=== PATIENT | male | born 1970 | race Caucasian/White ===

== ENCOUNTER 2019-10-24 18:17 | Inpatient (IN) | payer OTHER, SELFPAY ==
[2019-10-24 18:22] VITALS: PULSE 100; RESP 22; TEMP 38.6; O2SAT 99; BMI 27.2
[2019-10-24 19:05] LABS: Influenza A - CEPHEID Flu A NEGATIVE (NEGATIVE); Influenza B - CEPHEID Flu B NEGATIVE (NEGATIVE)
--- NOTE | 2019-10-24 19:12 | DI.RAD.S_ITS ---
PROCEDURE: XR CHEST 2V INDICATIONS: cough, fever TECHNIQUE: 2 views of the chest were acquired. COMPARISON: None. FINDINGS: Surgical changes and devices: None. Lungs and pleura: Lungs are clear. No pleural effusions or pneumothorax. Mediastinum: Mediastinal contours are normal. Heart size is normal. Bones and chest wall: No suspicious bony abnormalities. Soft tissues appear unremarkable. IMPRESSION: Normal chest. Dictated by: Barbara Dominguez M.D. on 10/24/2019 at 20:15 Approved by: Barbara Dominguez M.D. on 10/24/2019 at 20:15
--- NOTE | 2019-10-24 19:21 | ED_ITS ---
HPI - URI/Sore Throat <THOR Joseph - Last Filed: 10/24/19 22:38> General Chief Complaint: Upper Respiratory Symptoms Stated Complaint: Very Sick Time Seen by Provider: 10/24/19 19:11 Source: patient Mode of arrival: Ambulatory Limitations: no limitations History of Present Illness HPI Narrative: The patient is a 49-year-old male with history of abdominal surgery and J-pouch related to IBS correction. he states that he has but having low-grade fevers, profuse diarrhea, muscle aches, chills productive cough for the past several days. He states he has generalized abdominal pain and feels very gassy. he states that he has had some bowel obstructions in the past. He is curious as to whether not he has the flu or pneumonia. He has not followed up with primary care provider. He states that he has been eating a lot of popsicles related to his GI upset. Related Data Home Medications Medication Instructions Recorded Confirmed No Known Home Medications 10/25/19 10/25/19 Allergies Allergy/AdvReac Type Severity Reaction Status Date / Time amoxicillin Allergy Verified 10/24/19 18:33 Review of Systems <THOR Joseph - Last Filed: 10/24/19 22:38> Review of Systems Narrative: GENERAL: See HPI HEENT: Denies sinus pain, ear pain, sore throat, difficulty swallowing, dizziness. RESPIRATORY: Denies dyspnea, cough, wheezing, hemoptysis, sputum. CARDIOVASCULAR: Denies chest pain, palpitations, orthopnea, edema, GASTROINTESTINAL: see HPI : Denies dysuria, frequency, incontinence, hematuria, urinary retention. MUSCULOSKELETAL: denies weakness, joint pain, or bony pain SKIN: Denies rash, skin lesions, or other NEUROLOGIC: Denies weakness, headache, numbness, change in speech, confusion, seizures, incoordination. PSYCHIATRIC: No concerning psychosocial issues. 12 point review of systems is negative except for those stated above Patient History <THOR Joseph - Last Filed: 10/24/19 22:38> Social History household members: spouse and children Smoking Status: Never smoker Smoking Status: Never smoker alcohol intake frequency: 0-2 drinks per day Substance Use Type: does not use Exam <THOR Joseph - Last Filed: 10/24/19 22:38> Narrative Exam Narrative: GENERAL: This is a well-nourished, well-developed patient, in appears uncomfortable HEAD: Atraumatic. Normocephalic. No temporal or scalp tenderness. EYES: Pupils equal round and reactive. Extraocular motions intact. No scleral icterus. No injection or drainage. ENT: Nose without bleeding, purulent drainage or septal hematoma. Throat without erythema, tonsillar hypertrophy or exudate. Uvula midline. Airway patent. NECK: Trachea midline. No JVD or lymphadenopathy. Supple, nontender, no meningeal signs. CARDIOVASCULAR: Regular rate and rhythm RESPIRATORY: Clear to auscultation. Breath sounds equal bilaterally. No wheezes, rales, or rhonchi. occasional cough. No increased respiratory effort. No accessory muscle use. GASTROINTESTINAL: Abdomen Firm, diffusely tender active bowel sounds all 4 quadrants, nondistended. No hepato-splenomegaly, or palpable masses. No guarding. EXTREMITIES: No clubbing, cyanosis, or edema. No joint tenderness, effusion, or edema noted. BACK: Nontender without deformity or crepitance. No flank tenderness. NEURO: AOx3. interactive. Age appropriate. SKIN: No rash or erythema On visible skin Initial Vital Signs Initial Vital Signs: Vital Signs Temperature 101.4 F H 10/24/19 18:22 Pulse Rate 100 H 10/24/19 18:22 Respiratory Rate 22 10/24/19 18:22 Pulse Oximetry 99 10/24/19 18:22 <Jessica Albarran DO - Last Filed: 10/25/19 07:16> Initial Vital Signs Initial Vital Signs: Vital Signs Temperature 101.4 F H 10/24/19 18:22 Pulse Rate 100 H 10/24/19 18:22 Respiratory Rate 22 10/24/19 18:22 Pulse Oximetry 99 10/24/19 18:22 Course <THOR Joseph - Last Filed: 10/24/19 22:38> Orders Ordered: ED Orders 10/24/19 22:19 CT abdomen pelvis wo con Stat 10/24/19 23:35 UA Complete [Urinalysis and Microscopic] Stat Sodium Chloride (Normal Saline 0.9%) 1,000 mls @ 150 mls/hr IV CONT TIFFANIE Last Infusion: 10/25/19 02:44 Dose: 0 mls/hr Documented by: Admin: 10/24/19 22:05 Dose: 150 mls/hr Documented by: MINI Sodium Chloride (Normal Saline 0.9%) 1,000 mls @ 125 mls/hr IV CONT TIFFANIE Last Admin: 10/25/19 03:18 Dose: 125 mls/hr Documented by: CRISTINAILLER Morphine Sulfate (Morphine) 2 mg IV Q4HR PRN PRN Reason: Pain, Mild (1-3) Ondansetron HCl (Zofran) 4 mg IV Q4HR PRN PRN Reason: Nausea And Vomiting Discontinued Medications Diphenhydramine HCl (Benadryl) 50 mg IV NOW ONE Stop: 10/24/19 21:31 Last Admin: 10/24/19 21:52 Dose: 50 mg Documented by: MINI Sodium Chloride (Normal Saline 0.9%) 1,000 mls @ 1,000 mls/hr IV BOLUS ONE Stop: 10/24/19 20:29 Last Infusion: 10/24/19 20:59 Dose: 0 mls/hr Documented by: Admin: 10/24/19 20:02 Dose: 1,000 mls/hr Documented by: MINI Methylprednisolone (Solu-Medrol 125 Mg Vial) 125 mg IV NOW ONE Stop: 10/24/19 21:31 Last Admin: 10/24/19 21:52 Dose: 125 mg Documented by: MINI Ondansetron HCl (Zofran) 4 mg IV NOW ONE Stop: 10/24/19 21:31 Last Admin: 10/24/19 21:52 Dose: 4 mg Documented by: MINI Vital Signs Vital signs: Vital Signs - 8 hr 10/25/19 00:02 10/25/19 02:50 10/25/19 02:51 Temperature 98.6 F 98.1 F 98.4 F Pulse Rate 76 74 77 Respiratory Rate 18 20 18 Blood Pressure 137/80 Blood Pressure [Left Arm] 123/71 133/74 Pulse Oximetry 97 96 99 <Jessica Albarran, DO - Last Filed: 10/25/19 07:16> Orders Ordered: ED Orders 10/24/19 22:19 CT abdomen pelvis wo con Stat 10/24/19 23:35 UA Complete [Urinalysis and Microscopic] Stat Sodium Chloride (Normal Saline 0.9%) 1,000 mls @ 150 mls/hr IV CONT TIFFANIE Last Infusion: 10/25/19 02:44 Dose: 0 mls/hr Documented by: Admin: 10/24/19 22:05 Dose: 150 mls/hr Documented by: MINI Sodium Chloride (Normal Saline 0.9%) 1,000 mls @ 125 mls/hr IV CONT TIFFANIE Last Admin: 10/25/19 03:18 Dose: 125 mls/hr Documented by: YANNA Morphine Sulfate (Morphine) 2 mg IV Q4HR PRN PRN Reason: Pain, Mild (1-3) Ondansetron HCl (Zofran) 4 mg IV Q4HR PRN PRN Reason: Nausea And Vomiting Discontinued Medications Diphenhydramine HCl (Benadryl) 50 mg IV NOW ONE Stop: 10/24/19 21:31 Last Admin: 10/24/19 21:52 Dose: 50 mg Documented by: MINI Sodium Chloride (Normal Saline 0.9%) 1,000 mls @ 1,000 mls/hr IV BOLUS ONE Stop: 10/24/19 20:29 Last Infusion: 10/24/19 20:59 Dose: 0 mls/hr Documented by: Admin: 10/24/19 20:02 Dose: 1,000 mls/hr Documented by: MINI Methylprednisolone (Solu-Medrol 125 Mg Vial) 125 mg IV NOW ONE Stop: 10/24/19 21:31 Last Admin: 10/24/19 21:52 Dose: 125 mg Documented by: MINI Ondansetron HCl (Zofran) 4 mg IV NOW ONE Stop: 10/24/19 21:31 Last Admin: 10/24/19 21:52 Dose: 4 mg Documented by: MINI Vital Signs Vital signs: Vital Signs - 8 hr 10/25/19 00:02 10/25/19 02:50 10/25/19 02:51 Temperature 98.6 F 98.1 F 98.4 F Pulse Rate 76 74 77 Respiratory Rate 18 20 18 Blood Pressure 137/80 Blood Pressure [Left Arm] 123/71 133/74 Pulse Oximetry 97 96 99 MDM - URI/Sore Throat <THOR Joseph - Last Filed: 10/24/19 22:38> Lab Data Result diagrams: 10/24/19 19:55 10/24/19 19:55 Labs: Lab Results 10/24/19 10/24/19 10/24/19 Range/Units 18:25 19:55 19:55 WBC 8.5 (4.5-11.0) X10^3/uL RBC 4.68 (4.5-5.9) X10^6/uL Hgb 14.4 (13.5-17.5) g/dL Hct 41.3 (41-53) % MCV 88.2 (80-100) fL MCH 30.7 (26-34) PG MCHC 34.8 (30-36) % RDW 13.4 (11.6-14.8) % Plt Count 217 (150-400) X10^3/uL Neut % (Auto) 75.9 H (50-75) % Lymph % (Auto) 11.2 L (25-40) % [place] % (Auto) 9.5 (3-14) % Eos % (Auto) 2.1 (2-4) % Baso % (Auto) 1.3 (0-2) % Neut # (Auto) 6500 (1940-2306) /uL Lymph # (Auto) 1000 L (1384-3345) /uL [place] # (Auto) 800 (0-900) /uL Eos # (Auto) 200 (0-450) /uL Baso # (Auto) 100 (0-100) /uL Sodium 141 (137-145) mmol/L Potassium 4.1 (3.4-5.1) mmol/L Chloride 106 (98-107) mmol/L Carbon Dioxide 26 (22-32) mmol/L BUN 10 (9-20) mg/dL Creatinine 1.30 H (0.66-1.25) mg/dL Estimated GFR 58.2 L (>60) mL/min BUN/Creatinine Ratio 7.7 (6-22) Glucose 112 H (70-100) mg/dL Calcium 9.5 (8.4-10.2) mg/dL Magnesium 1.8 (1.6-2.3) mg/dL Total Bilirubin 1.3 (0.2-1.3) mg/dL AST 29 (17-59) IU/L ALT 25 (<50) IU/L Alkaline Phosphatase 83 (38-126) U/L Total Protein 8.0 (6.3-8.2) g/dL Albumin 4.4 (3.5-5.0) g/dL Globulin 3.6 (1.7-4.1) g/dL Albumin/Globulin Ratio 1.2 (1.0-2.8) Amylase 111 H (30-110) U/L Lipase 72 (23-300) U/L Procalcitonin (<0.5) ng/mL Urine Color Urine Appearance Urine pH (4.5-8.0) Ur Specific [place] (1.000-1.035) Urine Protein (Negative) Urine Glucose (UA) (Negative) g/dL Urine Ketones (NEGATIVE) Urine Occult Blood (Negative) Urine Nitrate (Negative) Urine Bilirubin (NEGATIVE) Urine Urobilinogen (0.2) E.U./dL Ur Leukocyte Esterase (NEGATIVE) Urine RBC (0-5/HPF) Urine WBC (0-5/HPF) Urine Bacteria (None) Ur Culture Indicated? Influenza A (RT-PCR) Flu a negative (NEGATIVE) Influenza B (RT-PCR) Flu b negative (NEGATIVE) 10/24/19 10/24/19 Range/Units 19:55 23:35 WBC (4.5-11.0) X10^3/uL RBC (4.5-5.9) X10^6/uL Hgb (13.5-17.5) g/dL Hct (41-53) % MCV (80-100) fL MCH (26-34) PG MCHC (30-36) % RDW (11.6-14.8) % Plt Count (150-400) X10^3/uL Neut % (Auto) (50-75) % Lymph % (Auto) (25-40) % [place] % (Auto) (3-14) % Eos % (Auto) (2-4) % Baso % (Auto) (0-2) % Neut # (Auto) (3414-6818) /uL Lymph # (Auto) (8291-5051) /uL [place] # (Auto) (0-900) /uL Eos # (Auto) (0-450) /uL Baso # (Auto) (0-100) /uL Sodium (137-145) mmol/L Potassium (3.4-5.1) mmol/L Chloride (98-107) mmol/L Carbon Dioxide (22-32) mmol/L BUN (9-20) mg/dL Creatinine (0.66-1.25) mg/dL Estimated GFR (>60) mL/min BUN/Creatinine Ratio (6-22) Glucose (70-100) mg/dL Calcium (8.4-10.2) mg/dL Magnesium (1.6-2.3) mg/dL Total Bilirubin (0.2-1.3) mg/dL AST (17-59) IU/L ALT (<50) IU/L Alkaline Phosphatase (38-126) U/L Total Protein (6.3-8.2) g/dL Albumin (3.5-5.0) g/dL Globulin (1.7-4.1) g/dL Albumin/Globulin Ratio (1.0-2.8) Amylase (30-110) U/L Lipase (23-300) U/L Procalcitonin 0.12 (<0.5) ng/mL Urine Color Yellow Urine Appearance Clear Urine pH 5.0 (4.5-8.0) Ur Specific [place] <=1.005 (1.000-1.035) Urine Protein Negative (Negative) Urine Glucose (UA) Negative (Negative) g/dL Urine Ketones Negative (NEGATIVE) Urine Occult Blood Trace-lysed (Negative) Urine Nitrate Negative (Negative) Urine Bilirubin Negative (NEGATIVE) Urine Urobilinogen 0.2 (0.2) E.U./dL Ur Leukocyte Esterase Negative (NEGATIVE) Urine RBC None seen (0-5/HPF) Urine WBC None seen (0-5/HPF) Urine Bacteria None seen (None) Ur Culture Indicated? Cult not indicated Influenza A (RT-PCR) (NEGATIVE) Influenza B (RT-PCR) (NEGATIVE) Imaging Data Abdominal x-ray: Radiologist's Impression: [address] [place] [id number] XRay Report Signed Patient: Leo Frost#: [id number] : 1970Acct:[id number] Age/Sex: 49 / MDate of Service: 10/24/19 Loc: ED Accession Number: [id number] Procedure: XR abdomen min 2V Ordering Provider: Jessica De Jesus PROCEDURE: XR ABDOMEN MIN 2V INDICATIONS: abd pain TECHNIQUE: 2 views of the abdomen were acquired. COMPARISON: None. FINDINGS: Surgical changes and devices: None. Bowel: No pneumoperitoneum. Multiple distended loops of air-filled small bowel with a few air-fluid levels are present in the epigastric region. . Soft tissues: 1.6 cm smooth ovoid calcification in the right midabdomen may be a gallstone. Bones: No suspicious bony abnormalities. Degenerative disc and endplate changes in the lower thoracic spine. IMPRESSION: 1. Findings suggestive of small bowel obstruction. CT scan recommended. 2. Possible cholelithiasis. Dictated by: Barbara Dominguez M.D. on 10/24/2019 at 20:19 Approved by: Barbara Dominguez M.D. on 10/24/2019 at 20:22 Chest x-ray: Radiologist's Impression: [address] [place] [address] XRay Report Signed Patient: Leo Frost#: [id number] : 1970Acct:[id number] Age/Sex: 49 / MDate of Service: 10/24/19 Loc: ED Accession Number: [id number] Procedure: XR chest 2V Ordering Provider: Jessica De Jesus PROCEDURE: XR CHEST 2V INDICATIONS: cough, fever TECHNIQUE: 2 views of the chest were acquired. COMPARISON: None. FINDINGS: Surgical changes and devices: None. Lungs and pleura: Lungs are clear. No pleural effusions or pneumothorax. Mediastinum: Mediastinal contours are normal. Heart size is normal. Bones and chest wall: No suspicious bony abnormalities. Soft tissues appear unremarkable. IMPRESSION: Normal chest. Dictated by: Barbara Dominguez M.D. on 10/24/2019 at 20:15 Approved by: Barbara Dominguez M.D. on 10/24/2019 at 20:15 [facility] Narrative Medical decision making narrative: the patient is a 49-year-old male who presents with a chief complaint of multiple medical complaints including severe diarrhea, fevers, muscle aches and chills. Tested negative for the flu. Chest x-ray shows no pneumonia, however abdominal x-ray was concerning for small-bowel obstruction. Patient is at high risk of SBO given his surgery in the past. CT abdomen pelvis with contrast was ordered, though the patient experience projectile vomiting upon immediate contrast administration. He was brought back to the emergency department, treated for nausea and a reaction to contrast dye. Unfortunatley patient received a full dose of contrast prior to coming back to the emergency department and no scan was obtained. Patient started oral co ntrast for CT abdomen pelvis. Patient is accordance with plan of care. Patient signed out to Dr Albarran at 22:[address] with oral contrast pending. <Jessica Albarran, DO - Last Filed: 10/25/19 07:16> Lab Data Attestation: I reviewed the patient's lab results. Labs: Lab Results 10/24/19 10/24/19 10/24/19 Range/Units 18:25 19:55 19:55 WBC 8.5 (4.5-11.0) X10^3/uL RBC 4.68 (4.5-5.9) X10^6/uL Hgb 14.4 (13.5-17.5) g/dL Hct 41.3 (41-53) % MCV 88.2 (80-100) fL MCH 30.7 (26-34) PG MCHC 34.8 (30-36) % RDW 13.4 (11.6-14.8) % Plt Count 217 (150-400) X10^3/uL Neut % (Auto) 75.9 H (50-75) % Lymph % (Auto) 11.2 L (25-40) % [place] % (Auto) 9.5 (3-14) % Eos % (Auto) 2.1 (2-4) % Baso % (Auto) 1.3 (0-2) % Neut # (Auto) 6500 (4186-3839) /uL Lymph # (Auto) 1000 L (8095-8165) /uL [place] # (Auto) 800 (0-900) /uL Eos # (Auto) 200 (0-450) /uL Baso # (Auto) 100 (0-100) /uL Sodium 141 (137-145) mmol/L Potassium 4.1 (3.4-5.1) mmol/L Chloride 106 (98-107) mmol/L Carbon Dioxide 26 (22-32) mmol/L BUN 10 (9-20) mg/dL Creatinine 1.30 H (0.66-1.25) mg/dL Estimated GFR 58.2 L (>60) mL/min BUN/Creatinine Ratio 7.7 (6-22) Glucose 112 H (70-100) mg/dL Calcium 9.5 (8.4-10.2) mg/dL Magnesium 1.8 (1.6-2.3) mg/dL Total Bilirubin 1.3 (0.2-1.3) mg/dL AST 29 (17-59) IU/L ALT 25 (<50) IU/L Alkaline Phosphatase 83 (38-126) U/L Total Protein 8.0 (6.3-8.2) g/dL Albumin 4.4 (3.5-5.0) g/dL Globulin 3.6 (1.7-4.1) g/dL Albumin/Globulin Ratio 1.2 (1.0-2.8) Amylase 111 H (30-110) U/L Lipase 72 (23-300) U/L Procalcitonin (<0.5) ng/mL Urine Color Urine Appearance Urine pH (4.5-8.0) Ur Specific [place] (1.000-1.035) Urine Protein (Negative) Urine Glucose (UA) (Negative) g/dL Urine Ketones (NEGATIVE) Urine Occult Blood (Negative) Urine Nitrate (Negative) Urine Bilirubin (NEGATIVE) Urine Urobilinogen (0.2) E.U./dL Ur Leukocyte Esterase (NEGATIVE) Urine RBC (0-5/HPF) Urine WBC (0-5/HPF) Urine Bacteria (None) Ur Culture Indicated? Influenza A (RT-PCR) Flu a negative (NEGATIVE) Influenza B (RT-PCR) Flu b negative (NEGATIVE) 10/24/19 10/24/19 Range/Units 19:55 23:35 WBC (4.5-11.0) X10^3/uL RBC (4.5-5.9) X10^6/uL Hgb (13.5-17.5) g/dL Hct (41-53) % MCV (80-100) fL MCH (26-34) PG MCHC (30-36) % RDW (11.6-14.8) % Plt Count (150-400) X10^3/uL Neut % (Auto) (50-75) % Lymph % (Auto) (25-40) % [place] % (Auto) (3-14) % Eos % (Auto) (2-4) % Baso % (Auto) (0-2) % Neut # (Auto) (2051-2551) /uL Lymph # (Auto) (0641-8297) /uL [place] # (Auto) (0-900) /uL Eos # (Auto) (0-450) /uL Baso # (Auto) (0-100) /uL Sodium (137-145) mmol/L Potassium (3.4-5.1) mmol/L Chloride (98-107) mmol/L Carbon Dioxide (22-32) mmol/L BUN (9-20) mg/dL Creatinine (0.66-1.25) mg/dL Estimated GFR (>60) mL/min BUN/Creatinine Ratio (6-22) Glucose (70-100) mg/dL Calcium (8.4-10.2) mg/dL Magnesium (1.6-2.3) mg/dL Total Bilirubin (0.2-1.3) mg/dL AST (17-59) IU/L ALT (<50) IU/L Alkaline Phosphatase (38-126) U/L Total Protein (6.3-8.2) g/dL Albumin (3.5-5.0) g/dL Globulin (1.7-4.1) g/dL Albumin/Globulin Ratio (1.0-2.8) Amylase (30-110) U/L Lipase (23-300) U/L Procalcitonin 0.12 (<0.5) ng/mL Urine Color Yellow Urine Appearance Clear Urine pH 5.0 (4.5-8.0) Ur Specific [place] <=1.005 (1.000-1.035) Urine Protein Negative (Negative) Urine Glucose (UA) Negative (Negative) g/dL Urine Ketones Negative (NEGATIVE) Urine Occult Blood Trace-lysed (Negative) Urine Nitrate Negative (Negative) Urine Bilirubin Negative (NEGATIVE) Urine Urobilinogen 0.2 (0.2) E.U./dL Ur Leukocyte Esterase Negative (NEGATIVE) Urine RBC None seen (0-5/HPF) Urine WBC None seen (0-5/HPF) Urine Bacteria None seen (None) Ur Culture Indicated? Cult not indicated Influenza A (RT-PCR) (NEGATIVE) Influenza B (RT-PCR) (NEGATIVE) MDM Narrative Medical decision making narrative: Patient comes in needing septic criteria with a fever pulse of 100, x-ray was concerning for bowel obstruction lab work CT of abdomen was pelvis patient had 1 episode of vomiting immediately after receiving contrast he has not had any vomiting otherwise knees had diarrhea so is likely a partial bowel obstruction. Patient used to see Dr. Toledo I spoke with Dr. Loza who recognizes the patient name and states that he is comfortable accepting the patient although patient states he has not been there at least in a year or more. They will contact General surgery as needed patient was given fluids, pain medication and was pretreated after doing oral contrast as they did not want to repeat contrast secondary to his chronic kidney disease. Patient did not have any additional emesis. Discharge Plan Departure Patient Disposition: Admitted as Observation Clinical Impression: Small bowel obstruction, partial Discharge Date/Time: 10/25/19 02:54 Admit Date/Time: 10/25/19 03:03 Admit Provider: Ralph Loza
[2019-10-24] MEDS: SODIUM CHLORIDE 0.9% 1,000 ML 1000 ML IV (20:02)
[2019-10-24 20:05] LABS: Add Manual Diff / Slide Review NO; Basophils Absolute Auto 100 /uL (0-100); Basophils Percent Auto 1.3 % (0-2); Eosinophils Absolute Auto 200 /uL (0-450); Eosinophils Percent Auto 2.1 % (2-4); Hematocrit 41.3 % (41-53); Hemoglobin 14.4 g/dL (13.5-17.5); Lymphocytes Absolute Auto 1000 /uL (1100-4500); Lymphocytes Percent Auto 11.2 % (25-40); Mean Corpuscular HGB Conc 34.8 % (30-36); Mean Corpuscular Hemoglobin 30.7 PG (26-34); Mean Corpuscular Volume 88.2 fL (80-100); Monocytes Absolute Auto 800 /uL (0-900); Monocytes Percent Auto 9.5 % (3-14); Neutrophils Absolute Auto 6500 /uL (1500-7000); Neutrophils Percent Auto 75.9 % (50-75); Platelet Count 217 X10^3/uL (150-400); Red Blood Cell Count 4.68 X10^6/uL (4.5-5.9); Red Cell Distribution Width 13.4 % (11.6-14.8); White Blood Cell Count 8.5 X10^3/uL (4.5-11.0)
[2019-10-24 20:18] LABS: Alanine Aminotransferase 25 IU/L (<50); Albumin 4.4 g/dL (3.5-5.0); Albumin Globulin Ratio 1.2 (1.0-2.8); Alkaline Phosphatase 83 U/L (38-126); Amylase 111 U/L (30-110); Aspartate Aminotransferase 29 IU/L (17-59); BUN Creatinine Ratio 7.7 (6-22); Bilirubin Total 1.3 mg/dL (0.2-1.3); Blood Urea Nitrogen 10 mg/dL (9-20); Calcium 9.5 mg/dL (8.4-10.2); Carbon Dioxide 26 mmol/L (22-32); Chloride 106 mmol/L (98-107); Estimated Glomerular Filt Rate 58.2 mL/min (>60); Globulin 3.6 g/dL (1.7-4.1); Glucose 112 mg/dL (70-100); HEMOLYSIS < 15 (0-50); Lipase 72 U/L (23-300); Magnesium 1.8 mg/dL (1.6-2.3); Potassium 4.1 mmol/L (3.4-5.1); Sodium 141 mmol/L (137-145)
[2019-10-24] MEDS: diphenhydrAMINE 50 MG/ML VIAL IV (21:52)
[2019-10-24] MEDS: ONDANSETRON 4 MG/2 ML INJ IV (21:52)
[2019-10-24] MEDS: methylPREDNISolone 125 MG/2 ML VIAL IV (21:52)
[2019-10-24] MEDS: SODIUM CHLORIDE 0.9% 1,000 ML 150 ML IV (22:05)
--- NOTE | 2019-10-24 22:19 | DI.CT.S_ITS ---
PROCEDURE: CT ABDOMEN PELVIS W CON INDICATIONS: abdominal pain TECHNIQUE: After the administration of oral and intravenous contrast, 5 mm thick sections acquired from the diaphragms to the symphysis. 5 mm thick coronal and sagittal reformats were performed. For radiation dose reduction, the following was used: automated exposure control, adjustment of mA and/or kV according to patient size. COMPARISON: None. FINDINGS: Image quality: Excellent. ABDOMEN: Lung bases: Lung bases are clear. Heart size is normal. Solid organs: Liver is enlarged steatosis. Hepatic cysts are noted. Gallbladder demonstrates a prominent luminal stone. Gallbladder is overall contracted.. Biliary system is non-dilated. Pancreas enhances normally. Spleen is normal in size and enhancement. No adrenal nodules. Kidneys are normal in size and enhancement, without hydronephrosis. Peritoneum and bowel: Prominently dilated fluid-filled loops of small bowel are present. This is most notable within the mid abdomen and pelvis. Surgical changes reflecting what appears to be total colectomy are noted. Transition point is suspected within the mid abdomen near anastomotic sutures. Nodes and vessels: No retroperitoneal or mesenteric adenopathy. Aorta and inferior vena cava are normal in caliber. Miscellaneous: No ventral hernias. PELVIS: Genitourinary: Bladder wall thickness is normal. Miscellaneous: No inguinal hernias or adenopathy. Bones: No suspicious bony lesions. No vertebral body compression fractures. IMPRESSION: 1. Moderate to severe partial small bowel obstruction. No free air. 2. Cholelithiasis with contracted gallbladder. If concern for cholecystitis persists, recommend ultrasound follow up would patient is n.p.o. 3. Hepatomegaly with steatosis and hepatic cysts. The above findings are concordant with preliminary report. Dictated by: Ivon Castillo M.D. on 10/25/2019 at 9:24 Approved by: Ivon Castillo M.D. on 10/25/2019 at 9:29
[2019-10-24 22:36] LABS: Procalcitonin 0.12 ng/mL (<0.5)
[2019-10-24 23:58] LABS: Bacteria Urine None Seen; RBC Urine None Seen (0-5/HPF); WBC Urine None Seen (0-5/HPF)
[2019-10-25] VITALS (8 sets, daily range): BP systolic 122–140; BP diastolic 66–80; PULSE 71–83; RESP 14–20; TEMP 36.7–37.2; O2SAT 94–99; BMI 27.2
[2019-10-25] LABS: Appearance Urine UA CLEAR; Bilirubin Urine UA NEGATIVE (NEGATIVE); Color Urine UA YELLOW; Glucose Urine UA NEGATIVE (Negative); Ketones Urine UA NEGATIVE (NEGATIVE); Leukocyte Esterase Urine UA NEGATIVE (NEGATIVE); Nitrite Urine UA NEGATIVE (Negative); Occult Blood Urine UA TRACE-LYSED (Negative); Protein Urine UA NEGATIVE (Negative); Specific Gravity Urine UA <=1.005 (1.000-1.035); Urobilinogen Urine UA 0.2 E.U./dL (0.2)
[2019-10-25 00:17] LABS: Culture Indicated Urine Cult Not Indicated
--- NOTE | 2019-10-25 02:52 | PC.NURSE ---
for additional vitals see paper chart.
[2019-10-25] MEDS: SODIUM CHLORIDE 0.9% 1,000 ML 125 ML IV ×2 (03:18→10:43)
[2019-10-25 09:37] LABS: Add Manual Diff / Slide Review NO; Basophils Absolute Auto 0 /uL (0-100); Basophils Percent Auto 0.2 % (0-2); Eosinophils Absolute Auto 0 /uL (0-450); Eosinophils Percent Auto 0.1 % (2-4); Hemoglobin 14.3 g/dL (13.5-17.5); Lymphocytes Absolute Auto 600 /uL (1100-4500); Lymphocytes Percent Auto 7.7 % (25-40); Mean Corpuscular Hemoglobin 30.8 PG (26-34); Mean Corpuscular Volume 88.1 fL (80-100); Monocytes Absolute Auto 200 /uL (0-900); Neutrophils Absolute Auto 6900 /uL (1500-7000); Platelet Count 237 X10^3/uL (150-400); Red Blood Cell Count 4.66 X10^6/uL (4.5-5.9); Red Cell Distribution Width 13.1 % (11.6-14.8); White Blood Cell Count 7.7 X10^3/uL (4.5-11.0)
[2019-10-25 09:54] LABS: Alanine Aminotransferase 21 IU/L (<50); Albumin 4.1 g/dL (3.5-5.0); Albumin Globulin Ratio 1.2 (1.0-2.8); Alkaline Phosphatase 83 U/L (38-126); Aspartate Aminotransferase 23 IU/L (17-59); Bilirubin Total 1.6 mg/dL (0.2-1.3); Blood Urea Nitrogen 11 mg/dL (9-20); Calcium 9.3 mg/dL (8.4-10.2); Carbon Dioxide 22 mmol/L (22-32); Chloride 107 mmol/L (98-107); Estimated Glomerular Filt Rate > 60.0 mL/min (>60); Globulin 3.5 g/dL (1.7-4.1); Glucose 153 mg/dL (70-100); HEMOLYSIS < 15 (0-50); Potassium 4.2 mmol/L (3.4-5.1); Sodium 140 mmol/L (137-145); Total Protein 7.6 g/dL (6.3-8.2)
[2019-10-25 09:56] LABS: Amylase 79 U/L (30-110); C-Reactive Protein Quant 3.7 mg/dL (<1.0); Lipase 62 U/L (23-300)
--- NOTE | 2019-10-25 13:20 | DI.US.S_ITS ---
PROCEDURE: US ABDOMEN LIMITED INDICATIONS: ABNORMAL GALLBLADDER ON CT TECHNIQUE: Real-time scanning was performed of the abdominal and retroperitoneal organs, with image documentation. COMPARISON: [facility], CT, CT ABDOMEN PELVIS W CON, 10/24/2019, 23:12. FINDINGS: Liver: Within normal limits in size and echogenicity. Left lobe is not well-seen due to to overlying bowel gas. Gallbladder: Nondilated. Shadowing gallstones are present. Normal gallbladder wall thickness. No pericholecystic fluid. Negative sonographic Nettles's sign. Biliary ducts: Intrahepatic bile ducts are non-dilated. Extrahepatic bile duct caliber measures 7.5 mm. Normal is 6-7 mm or less in diameter, or 10 mm or less post-cholecystectomy. Pancreas: Not well-seen due to overlying bowel gas. Kidneys: Right pelvic kidney. No hydronephrosis. Left kidney not evaluated. IMPRESSION: 1. No acute cholecystitis. Gallstones are present. 2. Sonographic appearance of the liver is within normal limits. 3. Right pelvic kidney. Dictated by: Rico Juarez M.D. on 10/25/2019 at 13:56 Approved by: Rico Juarez M.D. on 10/25/2019 at 13:59
--- NOTE | 2019-10-25 14:34 | CM.DANOTE ---
Discharge Planning/Care Management DCP: assessment: case received, EMR reviewed (currently no H&P is available is available). Met with pt and introduced self and role. Pt is a 49 year old male who admitted early this morning to care of [facility]. It is unclear who is following him today and pt is also unsure. PCP: was Dr. Toledo, now retired. Payer: [employer] Admission status: in review per CHARLES Wolff. Pt confirms he is functionally independent at baseline and is eager to hear what the physician plans. He is eager to get back to work, says he has had total of 3 abdominal surgeries at the [facility] and has no more PTO left. He says his works and we will be fine, but he is eager to here what is expected. Assured him DCP team would be available to assist with any d/c needs that may arise... Hopefully documentation will be in place by tomorrow so that pt and the care team will have more clarity re POC going forward. CM Discharge Assessment Start: 10/25/19 14:33 Freq: Status: Active Protocol: Document 10/25/19 14:33 ITV (Rec: 10/25/19 14:34 ITV [id number]) Discharge Planning Assessment Advance Directives? No History Provided By Patient,Medical Record Has Patient been admitted in last 30 No days? Prior Living Arrangements House Household Members spouse Type of transportation used prior to Drives own vehicle admit Independent with ADL's Yes Is patient alert and oriented? Yes Whiteboard Updated in Patient Room with Yes name and ext. 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
--- NOTE | 2019-10-25 17:53 | DI.RAD.S_ITS ---
PROCEDURE: XR ACUTE ABDOMEN SERIES INDICATIONS: bowel obstruction TECHNIQUE: One view chest and two views of the abdomen were acquired. COMPARISON: None. FINDINGS: Surgical changes and devices: None. Chest: Lungs are clear. Heart size is normal. No pleural effusions. No pneumoperitoneum. Abdomen: Bowel gas pattern is abnormal, with small bowel obstruction pattern suspected over the midabdomen, without colonic dilatation or evidence of free air.. No suspicious calcifications. Visualized solid organ contours appear normal. Bones: No suspicious bony lesions. IMPRESSION: Early small bowel obstruction pattern, moderate in severity. CT scanning may be warranted. Dictated by: Mayito Galvez M.D. on 10/25/2019 at 18:27 Approved by: Mayito Galvez M.D. on 10/25/2019 at 18:28
--- NOTE | 2019-10-25 18:14 | P.HP_ITS ---
History of Present Illness History of Present Illness Date Patient Seen: 10/25/19 Time Patient Seen: 08:14 Chief complaint: Very Sick Narrative: Patient presents to emergency department with complaints of feeling very ill. He was having fever upper respiratory symptoms with cough phlegm for approximately 6 days prior to reporting to emergency room via private vehicle. Because of this he started cutting down on food and then was having diarrheal stools several a day for the last week. He has a history of Crohn's disease and underwent a total colectomy with a J-pouch formation in 2013. He has done well since then. He has had persistent left lower quadrant pain that has been intermittent. He last so his surgeon a year ago and they thought it was just r elated to how they had to perform the surgery and how they had to bring the small intestine down attach it to the anus. He cut down on foods because he was just generally feeling poorly. He was found have a temperature in the ER but did not receive any antibiotics and was admitted for a partial bowel obstruction. He is feeling better today. He is not passing gas but he has had diarrheal stools. He is not hungry. He is not having nausea. He has states that his phlegm production has decreased. His influenza swab was negative. Past Medical history: 1. Crohn's disease. Diagnosed in 2013. He underwent a total colectomy with J- pouch formation at 12:[address] Mena at [facility] area code [id number]. His automation design engineer is Dr. Tien Molina. He was last seen by him a year ago and they did a sigmoidoscopy it sounds like it was normal and then he was post have a CT scan but they never called him for this. He had a total of 3 surgeries his last 1 was in June of 2016. He is otherwise healthy. He previously saw Dr. Cuevas or [facility] Medications: None Allergies: Amoxicillin causes a rash Past surgical history: Total colectomy and J-pouch formation with 3 surgeries from August of 2015 to June of 2016 HRB: No tobacco abuse. Repeat rare alcohol. No exercise Family history: No autoimmune disorders. Paternal grandfather with colon cancer at age 49 and paternal grandmother with colon cancers well Mom of lung cancer. She was a smoker. Dad is alive but suffers from dementia and lives in a care facility. Social history patient is retired no works at [employer]. He is and lives in [place] and has a daughter. He is originally from [place] Review of systems: He had joint pain fingers extremities have been painful over the last several days similar to when he was 1st diagnosed with Crohn's. He has not had swelling. He has had a low-grade fever. He has had a lot of nasal congestion phlegm and cough. Review of systems is otherwise negative Patient History Family & Social History Social History: household members spouse Prior Living Arrangements House Safety & Behavioral: Feels Safe in Current Yes Environment Been Physically Hurt or No Threatened By a Person Tobacco & Substance use: Smoking Status Never smoker alcohol intake frequency 0-2 drinks per day Substance Use Type does not use Meds Home Medications and Allergies Home Medications Medication Instructions Recorded Confirmed Type No Known Home Medications 10/25/19 10/25/19 History Allergies Allergy/AdvReac Type Severity Reaction Status Date / Time amoxicillin Allergy Verified 10/24/19 18:33 Exam Vital Signs (past 8 hours): - 10/25/19 12:05 10/25/19 15:35 Temperature 98.7 F 98.9 F Pulse Rate 83 74 Respiratory Rate 16 16 Blood Pressure 140/68 129/79 Pulse Oximetry 97 97 Oxygen Delivery Method Room Air Oxygen Flow Rate 0 Narrative Exam Narrative: Patient alert and oriented in no apparent distress. He is a good historian. Afebrile vital signs are stable. He has not had a fever since admission at which point it was 101.4. HEENT: Unremarkable, mucous membranes moist and pink without lesions Neck: Supple without adenopathy or thyromegaly Chest: Clear to auscultation without wheezes rhonchi or crackles Cor: Regular rate and rhythm without murmur Abdomen: Positive bowel sounds x4. He is tender in the left lower quadrant with some guarding but no rebound tenderness and no peritoneal signs Extremities: No edema pulses intact Skin exam no rashes Neurologic exam nonfocal Objective Labs Result Diagrams: 10/25/19 09:15 10/25/19 09:15 Labs: Laboratory Results - last 24 hr 10/24/19 10/24/19 10/24/19 18:25 19:55 19:55 WBC 8.5 RBC 4.68 Hgb 14.4 Hct 41.3 MCV 88.2 MCH 30.7 MCHC 34.8 RDW 13.4 Plt Count 217 Neut % (Auto) 75.9 H Lymph % (Auto) 11.2 L [place] % (Auto) 9.5 Eos % (Auto) 2.1 Baso % (Auto) 1.3 Neut # (Auto) 6500 Lymph # (Auto) 1000 L [place] # (Auto) 800 Eos # (Auto) 200 Baso # (Auto) 100 Sodium 141 Potassium 4.1 Chloride 106 Carbon Dioxide 26 BUN 10 Creatinine 1.30 H Estimated GFR 58.2 L BUN/Creatinine Ratio 7.7 Glucose 112 H Calcium 9.5 Magnesium 1.8 Total Bilirubin 1.3 AST 29 ALT 25 Alkaline Phosphatase 83 C-Reactive Protein Total Protein 8.0 Albumin 4.4 Globulin 3.6 Albumin/Globulin Ratio 1.2 Amylase 111 H Lipase 72 Procalcitonin Urine Color Urine Appearance Urine pH Ur Specific [place] Urine Protein Urine Glucose (UA) Urine Ketones Urine Occult Blood Urine Nitrate Urine Bilirubin Urine Urobilinogen Ur Leukocyte Esterase Urine RBC Urine WBC Urine Bacteria Ur Culture Indicated? Influenza A (RT-PCR) Flu a negative Influenza B (RT-PCR) Flu b negative 10/24/19 10/24/19 10/25/19 19:55 23:35 09:15 WBC 7.7 RBC 4.66 Hgb 14.3 Hct 41.0 MCV 88.1 MCH 30.8 MCHC 35.0 RDW 13.1 Plt Count 237 Neut % (Auto) 90.0 H Lymph % (Auto) 7.7 L [place] % (Auto) 2.0 L Eos % (Auto) 0.1 L Baso % (Auto) 0.2 Neut # (Auto) 6900 Lymph # (Auto) 600 L [place] # (Auto) 200 Eos # (Auto) 0 Baso # (Auto) 0 Sodium Potassium Chloride Carbon Dioxide BUN Creatinine Estimated GFR BUN/Creatinine Ratio Glucose Calcium Magnesium Total Bilirubin AST ALT Alkaline Phosphatase C-Reactive Protein Total Protein Albumin Globulin Albumin/Globulin Ratio Amylase Lipase Procalcitonin 0.12 Urine Color Yellow Urine Appearance Clear Urine pH 5.0 Ur Specific [place] <=1.005 Urine Protein Negative Urine Glucose (UA) Negative Urine Ketones Negative Urine Occult Blood Trace-lysed Urine Nitrate Negative Urine Bilirubin Negative Urine Urobilinogen 0.2 Ur Leukocyte Esterase Negative Urine RBC None seen Urine WBC None seen Urine Bacteria None seen Ur Culture Indicated? Cult not indicated Influenza A (RT-PCR) Influenza B (RT-PCR) 10/25/19 10/25/19 09:15 09:15 WBC RBC Hgb Hct MCV MCH MCHC RDW Plt Count Neut % (Auto) Lymph % (Auto) [place] % (Auto) Eos % (Auto) Baso % (Auto) Neut # (Auto) Lymph # (Auto) [place] # (Auto) Eos # (Auto) Baso # (Auto) Sodium 140 Potassium 4.2 Chloride 107 Carbon Dioxide 22 BUN 11 Creatinine 1.00 Estimated GFR > 60.0 BUN/Creatinine Ratio 11.0 Glucose 153 H Calcium 9.3 Magnesium Total Bilirubin 1.6 H AST 23 ALT 21 Alkaline Phosphatase 83 C-Reactive Protein 3.7 H Total Protein 7.6 Albumin 4.1 Globulin 3.5 Albumin/Globulin Ratio 1.2 Amylase 79 Lipase 62 Procalcitonin Urine Color Urine Appearance Urine pH Ur Specific [place] Urine Protein Urine Glucose (UA) Urine Ketones Urine Occult Blood Urine Nitrate Urine Bilirubin Urine Urobilinogen Ur Leukocyte Esterase Urine RBC Urine WBC Urine Bacteria Ur Culture Indicated? Influenza A (RT-PCR) Influenza B (RT-PCR) Assessment & Plan Assessment & Plan narrative: 49-year-old male admitted with a moderate to severe partial small-bowel obstruction with a history of ulcerative colitis and status post total colectomy with J-pouch formation. He is improved today with IV fluids. He continues to be afebrile and has not received any antibiotics. We will continue with IV fluids. We will repeat labs this morning. We will do abdominal ultrasound due to cholelithiasis but I do not think this is contributing he is not tender in the right upper quadrant. We will repeat three view of the abdomen and if he is clearing then will give clear liquids. If he is not he will continue NPO with IV fluids with plan for discussion with his surgeon in a.m. pending how he is doing. 2. Upper respiratory infection. His flu swab was negative. He seems symptomatic sleep better. No evidence of bacterial infection. Will continue to monitor labs. Procalcitonin negative on abdomen Assessment 3. Acute renal insufficiency suspect related to dehydration Plan: Continue IV fluids and will check his labs this morning. Assessment 4. Cholelithiasis on CT scan. No evidence of acute cholecystitis. We will do abdominal ultrasound. We will continue to follow labs. Code status is full code Quality VTE Deep Vein Thrombosis/Pulmonary Embolism Present on Admission: No
[2019-10-25] MEDS: MORPHINE 2 MG/ML INJ IV (19:55)
[2019-10-25] MEDS: SODIUM CHLORIDE 0.9% 1,000 ML 150 ML IV (20:54)
[2019-10-26] VITALS (7 sets, daily range): BP systolic 119–145; BP diastolic 73–89; PULSE 62–76; RESP 12–16; TEMP 36.5–37.1; O2SAT 95–99
[2019-10-26] MEDS: SODIUM CHLORIDE 0.9% 1,000 ML 125 ML IV (04:57)
[2019-10-26 07:38] LABS: Add Manual Diff / Slide Review NO; Basophils Absolute Auto 0 /uL (0-100); Basophils Percent Auto 0.3 % (0-2); Eosinophils Absolute Auto 0 /uL (0-450); Eosinophils Percent Auto 0.4 % (2-4); Hematocrit 40.2 % (41-53); Hemoglobin 13.7 g/dL (13.5-17.5); Lymphocytes Absolute Auto 1400 /uL (1100-4500); Lymphocytes Percent Auto 19.7 % (25-40); Mean Corpuscular HGB Conc 34.2 % (30-36); Mean Corpuscular Hemoglobin 30.3 PG (26-34); Mean Corpuscular Volume 88.7 fL (80-100); Monocytes Absolute Auto 600 /uL (0-900); Monocytes Percent Auto 8.1 % (3-14); Neutrophils Absolute Auto 5100 /uL (1500-7000); Neutrophils Percent Auto 71.5 % (50-75); Platelet Count 230 X10^3/uL (150-400); Red Blood Cell Count 4.53 X10^6/uL (4.5-5.9); Red Cell Distribution Width 13.4 % (11.6-14.8); White Blood Cell Count 7.1 X10^3/uL (4.5-11.0)
[2019-10-26 07:54] LABS: Alanine Aminotransferase 17 IU/L (<50); Albumin 3.5 g/dL (3.5-5.0); Albumin Globulin Ratio 1.1 (1.0-2.8); Alkaline Phosphatase 64 U/L (38-126); Aspartate Aminotransferase 24 IU/L (17-59); BUN Creatinine Ratio 15.5 (6-22); Bilirubin Total 1.4 mg/dL (0.2-1.3); Blood Urea Nitrogen 17 mg/dL (9-20); Calcium 8.8 mg/dL (8.4-10.2); Carbon Dioxide 27 mmol/L (22-32); Chloride 110 mmol/L (98-107); Estimated Glomerular Filt Rate > 60.0 mL/min (>60); Globulin 3.2 g/dL (1.7-4.1); Glucose 94 mg/dL (70-100); HEMOLYSIS < 15 (0-50); Potassium 3.7 mmol/L (3.4-5.1); Sodium 145 mmol/L (137-145); Total Protein 6.7 g/dL (6.3-8.2)
--- NOTE | 2019-10-26 12:54 | P.PN_ITS ---
Subjective Subjective Date Patient Seen: 10/26/19 Time Patient Seen: 12:54 Interval history: Patient is doing better today, reports less abdominal pain, still some bloating. He is passing loose stools, nonbloody. Remains NPO. IV fluids running, urine remains concentrated and he is thirsty. Has been able to ambulate with no difficulty. Exam Vital Signs (past 8 hours): - 10/26/19 07:50 10/26/19 11:48 Temperature 98.8 F 98.7 F Pulse Rate 71 70 Respiratory Rate 16 16 Blood Pressure 119/77 120/73 Pulse Oximetry 98 99 Oxygen Delivery Method Room Air Oxygen Flow Rate 0 Narrative Exam Narrative: GENERAL: Alert and oriented, appearing stated age and in no acute distress. HEENT: Head normocephalic/atraumatic. LUNGS: Clear to ausculation bilaterally, no wheezes, rhonchi or rales. CV: Normal S1 and S2 with regular rate and rhythm, no audible murmurs, rubs or gallops. ABDOMEN: Soft, mildly tender over bilateral upper quadrants, mildly distended in same areas, no organomegaly. Positive bowel sounds in all 4 quadrants. EXTREMITIES: No clubbing, cyanosis, or edema. NEURO: Cranial nerves II through XII grossly intact, no focal deficits. PSYCH: Alert and oriented x 3. SKIN: No concerning lesions. Objective Labs Result Diagrams: 10/26/19 06:40 10/26/19 06:40 Labs: Laboratory Results - last 24 hr 10/26/19 10/26/19 06:40 06:40 WBC 7.1 RBC 4.53 Hgb 13.7 Hct 40.2 L MCV 88.7 MCH 30.3 MCHC 34.2 RDW 13.4 Plt Count 230 Neut % (Auto) 71.5 Lymph % (Auto) 19.7 L [place] % (Auto) 8.1 Eos % (Auto) 0.4 L Baso % (Auto) 0.3 Neut # (Auto) 5100 Lymph # (Auto) 1400 [place] # (Auto) 600 Eos # (Auto) 0 Baso # (Auto) 0 Sodium 145 Potassium 3.7 Chloride 110 H Carbon Dioxide 27 BUN 17 Creatinine 1.10 Estimated GFR > 60.0 BUN/Creatinine Ratio 15.5 Glucose 94 Calcium 8.8 Total Bilirubin 1.4 H AST 24 ALT 17 Alkaline Phosphatase 64 Total Protein 6.7 Albumin 3.5 Globulin 3.2 Albumin/Globulin Ratio 1.1 Assessment & Plan Assessment & Plan narrative: Assessment 1: Partial small-bowel obstruction, improving. Reassuring that the patient is passing stool, some pain and distension persists. Plan: Will update abdominal x-ray. Assessment 2: Dehydration secondary to NPO status. Plan: Will increase IV fluid rate and follow intake/output closely. Assessment 3: Acute renal insufficiency secondary to dehydration, resolved. Plan: Will follow labs closely. Assessment 4: Upper respiratory tract infection, likely viral, afebrile, improving. Plan: Supportive therapy, patient is resolving. Assessment 5. Cholelithiasis on CT scan. No evidence of acute cholecystitis on US. Plan: Clinically stable, will watch closely. DVT prophylaxis: SCDs Code: Full Quality VTE Deep Vein Thrombosis/Pulmonary Embolism Present on Admission: No
--- NOTE | 2019-10-26 12:57 | CM.DPC ---
DCP Cont: Checked in with patient. Introduced self and role. He was sitting up in his chair by his bed. Alert and oriented. Patient is currently employed at [employer]. He is independent. Stated that he has a history of abdominal problems, and has gone to [facility] for [facility]. Discussed primary care providers. Patient stated that he had gone to see Dr. Toledo one time, then, he retired. Mentioned the possibility of him getting established with Dr. Vance at [facility]. Dr. Parker will be seeing patient today. P: DCP to continue to follow. Patient should be able to return home when he is medically stable. Agnes Wing RN/Sleeper Cutter
--- NOTE | 2019-10-26 12:59 | DI.RAD.S_ITS ---
PROCEDURE: XR ACUTE ABDOMEN SERIES INDICATIONS: SBO, surveillance TECHNIQUE: One view chest and two views of the abdomen were acquired. COMPARISON: [facility], CR, XR ACUTE ABDOMEN SERIES, 10/25/2019, 17:51. FINDINGS: Surgical changes and devices: None. Chest: Lungs are clear. Heart size is normal. No pleural effusions. No pneumoperitoneum. Abdomen: Bowel gas pattern is again seen to be abnormal with small bowel gas distention moderate in severity over the abdomen. No suspicious calcifications. Visualized solid organ contours appear normal. Bones: No suspicious bony lesions. IMPRESSION: Moderate small bowel obstruction pattern, no free air seen. Dictated by: Mayito Galvez M.D. on 10/26/2019 at 15:27 Approved by: Mayito Galvez M.D. on 10/26/2019 at 15:27
--- NOTE | 2019-10-26 15:44 | PC.NURSE ---
Pt denies pain; BTs hyperactive, but this is baseline; pt reports several liquid with flecks stools; abdomen soft, non-tender; IV fluids running; NPO; patient moves independently in room
[2019-10-26] MEDS: SODIUM CHLORIDE 0.9% 1,000 ML 250 ML IV ×2 (16:20→23:22)
--- NOTE | 2019-10-26 16:30 | PC.NURSE ---
Addendum entered by Laura Hung R.N. 10/26/19 20:42: Up ambulatory in hallway. Addendum entered by Laura Hung R.N. 10/26/19 19:12: Pt refuses to wear scd's. States up in room exercising. States moving legs in bed and drawing up to abdomen which pt states helps with obstruction. Admits to loose stools. Original Note: Pt resting quietly in bed. Denies any significant abdominal pain and refuses offer for morphine. Admits to feeling hungry. Admits to passing stool. Abdomen is soft and pt reports minimal pain LLQ. NPO with oral swabs available. Reminder to use urinal to void for measurement purposes. Pt admits to feeling safe on feet without any dizziness or lightheadedness.
--- NOTE | 2019-10-27 00:12 | SUR.HOLD ---
Addendum entered by Christina Escalante R.N. 10/27/19 06:31: Patient has had 700cc liquid stool this shift along with passing flatus. Denies any abdominal pain or tenderness this morning. Hoping to be able to advance diet today and possibly discharge later. Original Note: Patient is alert and oriented. Breath sounds CTA with RA sat of 95%. HRR. Denies nausea. BT present and is passing flatus as well as liquid bile/ yellow colored stools according to patient; also states he was incontinent of stool earlier. Does state abdomen is tender in LLQ but not distended. Is voiding per urinal; denies dysuria, frequency or urgency. Is independent with bed mobility and getting up to bathroom. Denies pain. Refusing to wear SCD's despite information re: DVT prevention. Fall risk score is low.
[2019-10-27] MEDS: SODIUM CHLORIDE 0.9% 1,000 ML 250 ML IV ×2 (03:26→08:31)
[2019-10-27 05:48] VITALS: BP 123/80; PULSE 72; RESP 16; TEMP 36.3; O2SAT 98
[2019-10-27 06:16] LABS: Hemoglobin 12.8 g/dL (13.5-17.5); Mean Corpuscular HGB Conc 34.7 % (30-36); Mean Corpuscular Hemoglobin 30.8 PG (26-34); Mean Corpuscular Volume 88.8 fL (80-100); Platelet Count 220 X10^3/uL (150-400); Red Blood Cell Count 4.16 X10^6/uL (4.5-5.9); Red Cell Distribution Width 13.1 % (11.6-14.8); White Blood Cell Count 5.5 X10^3/uL (4.5-11.0)
[2019-10-27 06:25] LABS: Alanine Aminotransferase 16 IU/L (<50); Albumin 3.4 g/dL (3.5-5.0); Albumin Globulin Ratio 1.1 (1.0-2.8); Alkaline Phosphatase 65 U/L (38-126); Aspartate Aminotransferase 25 IU/L (17-59); Bilirubin Total 1.3 mg/dL (0.2-1.3); Blood Urea Nitrogen 14 mg/dL (9-20); Calcium 8.4 mg/dL (8.4-10.2); Carbon Dioxide 26 mmol/L (22-32); Chloride 112 mmol/L (98-107); Estimated Glomerular Filt Rate > 60.0 mL/min (>60); Globulin 3.2 g/dL (1.7-4.1); Glucose 85 mg/dL (70-100); HEMOLYSIS < 15 (0-50); Sodium 144 mmol/L (137-145); Total Protein 6.6 g/dL (6.3-8.2)
[2019-10-27 07:20] LABS: Neutrophils Absolute Manual 3575 /uL (3000-5900); RBC Morphology Normal Morphology; Total Cells Counted 100
--- NOTE | 2019-10-27 08:06 | PM.PN.1 ---
Subjective Subjective Date Patient Seen: 10/27/19 Time Patient Seen: 08:07 Interval history: Feeling much better this morning, significant decrease in pain. Would like to start eating again. Reports that he has had 4 previous small-bowel obstructions at home and started eating when he feels better, about this time. None of these events were treated in the hospital and so there is no confirmation imaging studies to support the diagnosis. Nursing reports that he did put out 700 mL of stool yesterday. Fluids increased yesterday and patient does feel less dehydrated but urine is still concentrated. No nausea or vomiting. Ambulating well. Would like to go home. Exam Vital Signs (past 8 hours): - 10/27/19 05:48 Temperature 97.4 F L Pulse Rate 72 Respiratory Rate 16 Blood Pressure 123/80 Pulse Oximetry 98 Oxygen Delivery Method Room Air Oxygen Flow Rate 0 Narrative Exam Narrative: GENERAL: Alert and oriented, appearing stated age and in no acute distress. HEENT: Head normocephalic/atraumatic. LUNGS: Clear to ausculation bilaterally, no wheezes, rhonchi or rales. CV: Normal S1 and S2 with regular rate and rhythm, no audible murmurs, rubs or gallops. ABDOMEN: Soft, non-tender, non-distended, no organomegaly. Positive bowel sounds in all 4 quadrants. EXTREMITIES: No clubbing, cyanosis, or edema. NEURO: Cranial nerves II through XII grossly intact, no focal deficits. PSYCH: Alert and oriented x 3. Objective Labs Result Diagrams: 10/27/19 06:05 10/27/19 06:05 Labs: Laboratory Results - last 24 hr 10/27/19 10/27/19 06:05 06:05 WBC 5.5 RBC 4.16 L Hgb 12.8 L Hct 37.0 L MCV 88.8 MCH 30.8 MCHC 34.7 RDW 13.1 Plt Count 220 Total Counted 100 Seg Neutrophils % 65.0 Lymphocytes % (Manual) 16.0 L Atypical Lymphs % 11.0 H Monocytes % (Manual) 7.0 Eosinophils % (Manual) 1.0 L Neutrophils # (Manual) 3575 RBC Morphology Normal morphology Sodium 144 Potassium 4.0 Chloride 112 H Carbon Dioxide 26 BUN 14 Creatinine 1.00 Estimated GFR > 60.0 BUN/Creatinine Ratio 14.0 Glucose 85 Calcium 8.4 Total Bilirubin 1.3 AST 25 ALT 16 Alkaline Phosphatase 65 Total Protein 6.6 Albumin 3.4 L Globulin 3.2 Albumin/Globulin Ratio 1.1 Assessment & Plan Assessment & Plan narrative: Assessment 1: Partial small-bowel obstruction, abdominal x-ray shows persistence of moderate obstruction. Patient continues to pass stool, pain and distension has improved. Plan: Will update abdominal x-ray, hopeful that obstruction has resolved. If not, will consult general surgery so that they are aware of this patient in case that he does not resolve. Will also consult nutrition while he remains NPO as his albumin is starting to trend down and he is at risk for acute protein malnutrition due to calorie restriction. Assessment 2: Dehydration secondary to NPO status, improved but still dry. Plan: Will give IV bolus x 1 and continue maintenance fluids at 250 cc/hour. Will follow intake/output closely. Assessment 3: Acute renal insufficiency secondary to dehydration, resolved. Plan: Will follow labs closely. Assessment 4: Upper respiratory tract infection, likely viral, afebrile, improving. Plan: Supportive therapy, patient is resolving. Assessment 5. Cholelithiasis on CT scan. No evidence of acute cholecystitis on US. Plan: Clinically stable, will watch closely. DVT prophylaxis: SCDs Code: Full Quality VTE Deep Vein Thrombosis/Pulmonary Embolism Present on Admission: No
--- NOTE | 2019-10-27 08:20 | DI.RAD.S_ITS ---
PROCEDURE: XR ACUTE ABDOMEN SERIES INDICATIONS: partial SBO TECHNIQUE: One view chest and two views of the abdomen were acquired. COMPARISON: [facility], CT, CT ABDOMEN PELVIS W CON, 10/24/2019, 23:12. [facility], CR, XR ACUTE ABDOMEN SERIES, 10/26/2019, 13:28. [facility], CR, XR ACUTE ABDOMEN SERIES, 10/25/2019, 17:51. FINDINGS: Surgical changes and devices: None. Chest: Lungs are clear. Heart size is normal. No pleural effusions. No pneumoperitoneum. Abdomen: Bowel gas pattern is again seen to be abnormal, with slight improvement in a small bowel gas prominent pattern seen and 10/25/19. No free air. No suspicious calcifications. Visualized solid organ contours appear normal. Bones: No suspicious bony lesions. IMPRESSION: Slowly improving small bowel gas distention pattern centered at the left mid abdomen. No free air found. Dictated by: Mayito Galvez M.D. on 10/27/2019 at 9:53 Approved by: Mayito Galvez M.D. on 10/27/2019 at 9:55
[2019-10-27 08:38] VITALS: BP 134/78; PULSE 66; RESP 16; TEMP 37; O2SAT 97
[2019-10-27] MEDS: DEXTROSE 5%-0.45NS W/KCL 10MEQ 1,000 ML 250 MEQ IV (10:19)
[2019-10-27] MEDS: SODIUM CHLORIDE 0.9% 1,000 ML 1000 ML IV (10:19)
[2019-10-27 12:00] VITALS: BP 135/76; PULSE 65; RESP 16; TEMP 36.6; O2SAT 98
--- NOTE | 2019-10-27 14:10 | P.DS_ITS ---
History of Present Illness History of Present Illness Date Patient Seen: 10/27/19 Chief complaint: Very Sick Narrative: 49 yo male patient with Crohn's disease presents to emergency depart [facility] with complaints of feeling very ill. He was having fever and upper respiratory symptoms with cough and phlegm for approximately 6 days prior to reporting to emergency room via private vehicle. Because of this he started cutting down on food and then was having diarrheal stools several a day for the last week. He has a history of Crohn's disease and underwent a total colectomy with a J-pouch formation in 2013. He has done well since then. He has had persistent left lower quadrant pain that has been intermittent. He has some chronic left lower quadrant pain since his GI surgery a year ago and they thought that it was just related to how they had to perform the surgery and how they had to bring the small intestine down and attach it to the anus. He cut down on foods because he was just generally feeling poorly. He was found have a temperature in the ER but did not receive any antibiotics and was admitted for a partial bowel obstruction. He is feeling better today. He is not passing gas but he has had diarrheal stools. He is not hungry. He is not having nausea. He has states that his phlegm production has decreased. His influenza swab was negative. Discharge Providers Provider Date of admission: 10/25/19 03:03 Discharge Date: 10/27/19 Primary care physician: Consuelo Mario MD Consults: 10/27/19 08:12 Consult to Dietitian, Adult Routine Comment: Reason For Exam: NPO 2/2 partial SBO Discharge provider: Consuelo Vance MD Summary Hospital Course Discharge Diagnosis: Assessment 1: Partial small-bowel obstruction Assessment 2: Dehydration secondary to NPO status Assessment 3: Acute renal insufficiency secondary to dehydration, resolved. Assessment 4: Upper respiratory tract infection, likely viral, afebrile, improving. Assessment 5. Cholelithiasis on CT scan. No evidence of acute cholecystitis on US. Hospital Course: Patient had a fairly uneventful stay, he remained NPO during his inpatient stay and serial x-rays showed improvement of his partial small- bowel obstruction. He continued to pass stool throughout his stay. On day of discharge, he was able to tolerate clear liquids without any worsening abdominal pain, nausea, vomiting. Vital signs were stable throughout. Time spent on Discharge and Coordination of post-hospital care: 35 minutes Status at Discharge Cognitive/behavioral status at discharge: oriented Functional status at discharge: independent ambulation Overall status at discharge: patient is progressing back to baseline Exam Vital Signs (past 8 hours): - 10/27/19 08:38 10/27/19 12:00 Temperature 98.6 F 98 F Pulse Rate 66 65 Respiratory Rate 16 16 Blood Pressure 134/78 135/76 Pulse Oximetry 97 98 Oxygen Delivery Method Room Air Oxygen Flow Rate 0 Narrative Exam Narrative: GENERAL: Alert and oriented, appearing stated age and in no acute distress. HEENT: Head normocephalic/atraumatic. LUNGS: Clear to ausculation bilaterally, no wheezes, rhonchi or rales. CV: Normal S1 and S2 with regular rate and rhythm, no audible murmurs, rubs or gallops. ABDOMEN: Soft, non-tender, non-distended, no organomegaly. Positive bowel sounds in all 4 quadrants. EXTREMITIES: No clubbing, cyanosis, or edema. NEURO: Cranial nerves II through XII grossly intact, no focal deficits. PSYCH: Alert and oriented x 3. Objective Labs Result Diagrams: 10/27/19 06:05 10/27/19 06:05 Labs: Laboratory Results - last 24 hr 10/27/19 10/27/19 06:05 06:05 WBC 5.5 RBC 4.16 L Hgb 12.8 L Hct 37.0 L MCV 88.8 MCH 30.8 MCHC 34.7 RDW 13.1 Plt Count 220 Total Counted 100 Seg Neutrophils % 65.0 Lymphocytes % (Manual) 16.0 L Atypical Lymphs % 11.0 H Monocytes % (Manual) 7.0 Eosinophils % (Manual) 1.0 L Neutrophils # (Manual) 3575 RBC Morphology Normal morphology Sodium 144 Potassium 4.0 Chloride 112 H Carbon Dioxide 26 BUN 14 Creatinine 1.00 Estimated GFR > 60.0 BUN/Creatinine Ratio 14.0 Glucose 85 Calcium 8.4 Total Bilirubin 1.3 AST 25 ALT 16 Alkaline Phosphatase 65 Total Protein 6.6 Albumin 3.4 L Globulin 3.2 Albumin/Globulin Ratio 1.1 Discharge Plan Discharge Plan Patient Disposition: Home Discharge orders & Medications Prescriptions: No Action No Known Home Medications RF: 0 Follow up/Referrals: Consuelo Vance MD [Physician] - Diet/Activity/Treatments Diet: Clear Liquid Diet comment: stop immediately if abdominal pain returns and f/u in ED. Activity: as tolerated Skin/Wound/Dressing Care Report to your healthcare provider any signs of infection, such as:: increased pain Discharge Data Attending Provider: Ralph Loza Admjohn Date/Time: 10/25/19 03:03 Quality VTE Deep Vein Thrombosis/Pulmonary Embolism Present on Admission: No
--- NOTE | 2019-10-27 14:41 | DI.RAD.S_ITS ---
PROCEDURE: XR ACUTE ABDOMEN SERIES INDICATIONS: FOLLOW UP OBSTRUCTION TECHNIQUE: One view chest and two views of the abdomen were acquired. COMPARISON: [facility], CR, XR ACUTE ABDOMEN SERIES, 10/27/2019, 8:40. FINDINGS: Surgical changes and devices: None. Chest: Lungs are clear. Heart size is normal. No pleural effusions. No pneumoperitoneum. Abdomen: The air distended small bowel loops are noted throughout abdomen with a few air fluid levels concerning for distal small bowel obstruction. No suspicious calcifications. Visualized solid organ contours appear normal. Bones: No suspicious bony lesions. IMPRESSION: Finding is concerning for distal small bowel structure. No gross free air. No acute cardio pulmonary pathology. There is worsening distention of bowel loops compared to earlier study. Dictated by: Tylor Kennedy M.D. on 10/27/2019 at 15:46 Approved by: Tylor Kennedy M.D. on 10/27/2019 at 15:49
[2019-10-27 15:35] VITALS: BP 138/88; PULSE 63; RESP 16; TEMP 36.6; O2SAT 98
--- NOTE | 2019-10-27 17:30 | PC.NURSE ---
Addendum entered by Laura Hung R.N. 10/27/19 19:44: Telephone contact made with Dr. Hidalgo. Was made aware pt left hospital AMA. Addendum entered by Laura Hung R.N. 10/27/19 18:22: Pt was given time in room to make phone calls and contemplate next action. Pt now opens door to room 206 and is fully dressed sitting up in recliner. States has checked into leaving AMA as far as insurance repayment and states desires to leave AMA. States has absolutely no abdominal pain and does admit to this senior technical writer, I sneaked 8 oz of water and my urine is lightening up. Pt reports abdomen feels totally normal. Further informed pt Dr. Vance did tell this senior technical writer pt could perforate colon if takes oral foods and fluids too soon with obstruction. Pt acknowledges understanding of all potential complications discussed and states is still leaving hospital. Reports ride is coming and has all personal effects in possession. Pt was ambulatory as left room 206 towards elevator. Pt signed leaving against medical advice form. Machine Carton Marker, Luz Maria, informed. Dr. Hidalgo paged to inform. Pt's iv was dc'd intact prior to leaving hospital. Original Note: Phone call from Dr. Vance stating pt's abdominal xray from this afternoon still shows pt with small bowel obstruction actually worsening. Requests this senior technical writer relay this information to pt. also states to this senior technical writer pt to remain NPO as refeeding can cause complications. Discussed with MD pt reported to this senior technical writer treats these same symptoms at home with clear liquids progressing to general diet. Dr. Vance explains to this senior technical writer is aware of pt's prior reported symptoms, but because pt never was hospitalized these are undocumented as bowel obstructions. This senior technical writer per Dr. Vance's request, shared all this information with pt. Pt immediately becomes upset and comes up off of bed stating, Are you kidding me? She's fired. I'm out of here. I'm leaving. Allowed pt to verbalize frustration and requested supervisor byproducts, Luz Maria, be a part of this conversation. Pt phones spouse to arrange for a ride to home. Offered to get provider on phone so pt could speak to provider and pt declines. Informed pt will give pt against medical advice form which pt will need to sign and pt verbalizes understanding and agreement. Informed pt this senior technical writer is unsure what will happen with insurance if pt leaves AMA and there is not any healthcare economics consultant to ask this of. Pt states will phone insurance and ask questions. Pt was given time to comtemplate alone in room.
== END 2019-10-27 18:10 | disposition left against medical advice (07) | DRG 390 ==
LOC: ED 10-25 01:41 → AC 10-25 09:48
PROVIDERS: Family Medicine; Nurse Practitioner Family; Student in an Organized Health Care Education/Training Program; Admitting Provider Family Medicine; Emergency Provider Emergency Medicine; Visit Provider Family Medicine
DX: K56.600 Partial intestinal obstruction, unspecified as to cause (principal); E86.0 Dehydration; J06.9 Acute upper respiratory infection, unspecified; N28.9 Disorder of kidney and ureter, unspecified; K80.20 Calculus of gallbladder without cholecystitis without obstruction
CPT/HCPCS: 36415; 71046; 74019; 74022; 74176; 74177; 76705; 80053; 81001; 82150; 82962; 83690; 83735; 84145; 85025; 86140; 87502; 96361; 96374; 96375; 99284; 99285; J1200; J2270; J2405; J2930

== ENCOUNTER 2021-03-26 19:30 | Emergency (ER) | payer OTHER, SELFPAY ==
[2019-10-25 03:07] VITALS: BMI 27.2
[2021-03-26 19:56] VITALS: BP 135/85; PULSE 87; RESP 18; TEMP 36.6; O2SAT 98
[2021-03-26 22:42] VITALS: BP 132/87; PULSE 84; RESP 15; O2SAT 98
--- NOTE | 2021-03-26 23:02 | DI.RAD.S_ITS ---
PROCEDURE: XR FOOT LT MIN 3V INDICATIONS: pain both sides TECHNIQUE: 3 views of the foot were acquired. COMPARISON: [facility], CR, TOE MINIMUM 2 VIEWS RIGHT, 04/04/2016, 16:25. FINDINGS: Bones: No fractures or dislocations. No suspicious bony lesions. Large dorsal calcaneal bone spur. Soft tissues: No tibiotalar joint effusion. Achilles tendon appears normal. Soft tissue swelling. IMPRESSION: No fracture. No acute osseous lesion. If symptoms and/or clinical suspicion for pathology persists, further assessment with repeat radiographs (7-10 days) or advanced imaging (e.g. CT, MRI or bone scan) should be considered. Dictated by: Lizett Zamora MD, PhD on 03/27/2021 at 8:14 Approved by: Lizett Zamora MD, PhD on 03/27/2021 at 8:32
--- NOTE | 2021-03-27 01:10 | ED.EXTPRO ---
HPI - Extremity Problem General Chief complaint: Extremity Problem,Nontraumatic Stated complaint: left foot problems Time Seen by Provider: 03/26/21 23:02 Source: patient Mode of arrival: Ambulatory Limitations: no limitations History of Present Illness HPI Narrative: 50-year-old male comes emergency department with complaint of left foot pain. Patient thought he had gout in his proximal toe joint on the left. He has had similar symptoms in the past. He took ibuprofen and drink plenty of fluids and had improvement. Since then he has been walking on this side the lateral side of his left foot and has developed pain over the distal 5th MTP joint. Patient also has warmth, erythema over the joint and extending between over the dorsum of the foot and between the toes. Patient denies any numbness, tingling or weakness. Patient states he was walking on it quite awkwardly while using a tile project. He has not had similar symptoms in that location before. He states he is not on any daily medications. He has a history of ulcerative colitis, known gout and has had a bowel obstruction which was his last hospitalization a year ago. No diabetes. No daily medications. He is allergic to amoxicillin. Dr. Vance this is regular physician and he has an appointment this in 36 hours. He does not smoke occasional alcohol, no illicit. Related Data Previous Rx's Medication Instructions Recorded clindamycin HCl 300 mg capsule 300 mg PO Q6H #40 cap 03/27/21 Allergies Allergy/AdvReac Type Severity Reaction Status Date / Time amoxicillin Allergy Verified 10/24/19 18:33 Review of Systems Review of Systems ROS Unobtainable: All systems reviewed & are unremarkable except as noted in HPI and below Patient History Social History household members: spouse Smoking Status: Never smoker Smoking Status: Never smoker alcohol intake frequency: 0-2 drinks per day Substance Use Type: does not use Exam Narrative Exam Narrative: GENERAL: Alert and oriented x three, male in mild distress. Patient was sleeping initially when I arrived. HEENT: Head normocephalic, atraumatic, EOMI, pupils reactive, face symmetric, moist mucous membranes NECK: Supple, full range of motion EXTREMITIES: Normal range of motion, no clubbing. Patient has tenderness over the distal MTP. He has swelling over the distal in TPN dorsum of his foot along with erythema tracking laterally and over the dorsum of the foot between the 2nd and 3rd metatarsals. Does not appear to involve the toes. It does not appear to involve the 1st proximal joint of the toe. Normal sensation per in full range of motion. Patient has 2+ dorsalis pedis. No other rash or skin changes appreciated. Lacerations or injuries noted. Neurovascularly intact NEUROLOGICAL: Cranial nerves II through XII grossly intact. Moving all extremities SKIN: Warm, dry, no petechiae, no rashes or lesions. Initial Vital Signs Initial Vital Signs: Vital Signs Temperature 97.9 F 03/26/21 19:56 Pulse Rate 87 03/26/21 19:56 Respiratory Rate 18 03/26/21 19:56 Blood Pressure 135/85 03/26/21 19:56 Pulse Oximetry 98 03/26/21 19:56 Course Orders Ordered: Discontinued Medications Clindamycin HCl (Clindamycin 150 Mg Capsule) 300 mg PO NOW ONE Stop: 03/27/21 01:25 Last Admin: 03/27/21 01:37 Dose: 300 mg Documented by: HEMAL Clindamycin HCl (Clindamycin 150 Mg Capsule) 300 mg PO NOW ONE Stop: 03/27/21 01:52 Last Admin: 03/27/21 01:54 Dose: 300 mg Documented by: HEMAL Vital Signs Vital signs: Vital Signs - 8 hr 03/26/21 19:56 03/26/21 22:42 Temperature 97.9 F Pulse Rate 87 84 Respiratory Rate 18 15 Blood Pressure 135/85 132/87 Pulse Oximetry 98 98 MDM - Extremity (Nontraumatic) Imaging Data Extremity x-ray #1: Radiologist's Impression: Generalized soft tissue swelling. No acute fracture. Discharge Plan Departure Patient Disposition: Home Clinical Impression: Cellulitis of foot Instructions: DI for Cellulitis -- Adult Activity Restrictions/Additional Instructions: I suspect you have cellulitis of your foot based on the location of her redness, swelling and skin changes. It is possible that you could have had gout in 2 separate joints. Your x-ray today does not show any major changes to the bone. Start antibiotics and take the until they are completely gone. Follow-up with her physician on for recheck they may wish to change her medications depending on how the redness and swelling and pain are progressing. Prescription sent to [facility] Return for fevers, rapidly worsening redness, swelling, significantly increasing pain, new numbness, tingling or weakness. Swelling or redness running up her leg, open wounds or other new or concerning changes. Prescriptions: New clindamycin HCl 300 mg capsule 300 mg PO Q6H Qty: 40 RF: 0 Referrals: Consuelo Vance MD [Primary Care Provider] -
[2021-03-27] MEDS: CLINDAMYCIN 150 MG CAPSULE 300 MG PO ×2 (01:37→01:54)
[2021-03-27 02:01] VITALS: BP 176/80; PULSE 80; RESP 16; O2SAT 98
== END 2021-03-27 02:02 | disposition home or self-care (01) ==
PROVIDERS: Emergency Provider Emergency Medicine; PCP Student in an Organized Health Care Education/Training Program
DX: L03.116 Cellulitis of left lower limb (principal)
CPT/HCPCS: 73630; 99283

== ENCOUNTER → 2021-06-14 09:54 | Outpatient (CLI) | payer OTHER, SELFPAY ==
[2019-10-25 03:07] VITALS: BMI 27.2
--- NOTE | 2021-06-14 | DI.RAD.S_ITS ---
PROCEDURE: XR KNEE LT 3V INDICATIONS: LEFT KNEE PAIN TECHNIQUE: 3 views of the knee were acquired. COMPARISON: None. FINDINGS: Bones: No fractures or dislocations. No suspicious bony lesions. Soft tissues: No joint effusion. No suspicious soft tissue calcifications. Soft tissue swelling noted anterior to the knee. IMPRESSION: 1. No fracture. No acute osseous lesion. If symptoms and/or clinical suspicion for pathology persists, further assessment with repeat radiographs (7-10 days) or advanced imaging (e.g. CT, MRI or bone scan) should be considered. 2. Nonspecific soft tissue swelling. Dictated by: Lizett Zamora MD, PhD on 06/14/2021 at 13:16 Approved by: Lizett Zamora MD, PhD on 06/14/2021 at 13:17
== END ==
PROVIDERS: PCP Student in an Organized Health Care Education/Training Program; Referring Provider Student in an Organized Health Care Education/Training Program; Visit Provider Student in an Organized Health Care Education/Training Program
DX: M25.562 Pain in left knee (principal); M79.89 Other specified soft tissue disorders
CPT/HCPCS: 73562

== ENCOUNTER → 2022-03-28 16:31 | Outpatient (CLI) | payer OTHER, SELFPAY ==
[2019-10-25 03:07] VITALS: BMI 27.2
--- NOTE | 2022-03-28 | DI.US.S_ITS ---
PROCEDURE: US ABDOMEN LIMITED INDICATIONS: Hernia TECHNIQUE: Real-time focused scanning was performed of the abdomen, with image documentation. COMPARISON: [facility], , ABDOMEN LIMITED, 10/25/2019, 13:33. FINDINGS: To the right of the umbilicus in the area of clinical concern, there is a fat containing hernia measuring 4.3 x 4.1 x 2.4 centimeters with the defect size of 2.1 centimeters. IMPRESSION: To the right of the umbilicus in the area of clinical concern, there is a fat containing hernia measuring 4.3 x 4.1 x 2.4 centimeters with the defect size of 2.1 centimeters. Dictated by: Albert Bourne M.D. on 03/28/2022 at 17:07 Approved by: Albert Bourne M.D. on 03/28/2022 at 17:09
== END ==
PROVIDERS: PCP Student in an Organized Health Care Education/Training Program; Referring Provider Family Medicine; Visit Provider Family Medicine
DX: K43.9 Ventral hernia without obstruction or gangrene (principal)
CPT/HCPCS: 76705

== ENCOUNTER 2023-09-20 14:25 | Emergency (ER) | payer BC, OTHER, SELFPAY ==
[2019-10-25 03:07] VITALS: BMI 27.2
[2023-09-20 14:29] VITALS: BP 172/98; PULSE 71; RESP 18; TEMP 36.4; O2SAT 99; BMI 29.4
--- NOTE | 2023-09-20 14:34 | DI.RAD.S_ITS ---
PROCEDURE: XR CHEST 1V INDICATIONS: Chest pain and SOB TECHNIQUE: One view of the chest was acquired. COMPARISON: [facility], CR, XR CHEST 2V, 10/24/2019, 19:13. FINDINGS: Surgical changes and devices: None. Lungs and pleura: Lungs are clear. No pleural effusions or pneumothorax. Mediastinum: Mediastinal contours appear normal. Heart size is normal. Bones and chest wall: No suspicious bony lesions. Overlying soft tissues appear unremarkable. IMPRESSION: No acute cardiopulmonary abnormality is seen. Dictated by: Juan Jose Quesada M.D. on 09/20/2023 at 13:52 Approved by: Juan Jose Quesada M.D. on 09/20/2023 at 13:54
[2023-09-20 14:54] VITALS: PULSE 70; O2SAT 98
[2023-09-20 14:56] VITALS: BP 145/89; PULSE 75; RESP 16; O2SAT 98
--- NOTE | 2023-09-20 14:58 | ED_ITS ---
HPI - General Adult General Chief complaint: Upper Respiratory Symptoms Stated complaint: hurts when coughing, pain in chest Time Seen by Provider: 09/20/23 14:34 Source: patient Mode of arrival: Ambulatory History of Present Illness HPI narrative: Patient is a 53-year-old male. For approximately 1 month he has had a cough. No fevers. He did try some Dimetapp and then Robitussin any thinks that they did help his symptoms somewhat. No sore throat. No sinus congestion. He states that approximately 3 weeks ago he pulled a muscle in his right side in the right side of his chest. This is when he was trying to close a heavy door. He states that the muscle pull on his right abdomen has improved but the right- sided chest discomfort has been lingering on. Related Data Previous Rx's Medication Instructions Recorded benzonatate 100 mg capsule 100 mg PO BID-TID PRN cough #10 09/20/23 caps Allergies Allergy/AdvReac Type Severity Reaction Status Date / Time No Known Drug Allergies Allergy Verified 09/20/23 14:29 Review of Systems Constitutional Constitutional: Reports system reviewed and no additional complaints, except as documented ENT Ears, Nose, Mouth, and Throat: Reports system reviewed and no additional complaints, except as documented Cardiovascular Cardiovascular: Reports system reviewed and no additional complaints, except as documented Respiratory Respiratory: Reports system reviewed and no additional complaints, except as documented Gastrointestinal Gastrointestinal: Reports system reviewed and no additional complaints, except as documented Integumentary/Breasts Skin/Breast: Reports system reviewed and no additional complaints, except as documented Hematologic/Lymphatic On Anticoagulants: No Patient History Medical History Ulcerative colitis Surgical History (Updated 04/28/22 @ 16:16 by Norma Fernandez RN) H/O total colectomy Social History household members: spouse Smoking Status: Never smoker Smoking Status: Never smoker alcohol intake frequency: 0-2 drinks per day Substance Use Type: does not use Exam Initial Vital Signs Initial Vital Signs: Vital Signs Temperature 97.6 F 09/20/23 14:29 Pulse Rate 71 09/20/23 14:29 Respiratory Rate 18 09/20/23 14:29 Blood Pressure 172/98 H 09/20/23 14:29 Pulse Oximetry 99 09/20/23 14:29 Oxygen Delivery Method Room Air 09/20/23 14:29 Const General: cooperative, comfortable and No ill appearing HENMT Head: normal to inspection and normocephalic Chest Chest: No crepitus and tenderness (Right-sided anterior chest wall) Resp Effort & Inspection: normal respiratory effort Auscultation: clear to auscultation bilaterally Cardio Rate: regular rate Skin General: no rashes or lesions noted Neuro General: patient alert and patient awake Extrem General: normal to inspection and capillary refill normal Course Orders Ordered: ED Orders 09/20/23 14:34 XR chest 1V Stat 09/20/23 14:35 Complete Blood Count AUTO DIFF Stat Comprehensive Metabolic Panel Stat Lipase Stat Troponin & CK Cardiac Panel Stat EKG-12 Lead Stat Vital Signs Vital signs: Vital Signs - 8 hr 09/20/23 14:29 Temperature 97.6 F Pulse Rate 71 Respiratory Rate 18 Blood Pressure 172/98 H Pulse Oximetry 99 Oxygen Delivery Method Room Air Medical Decision Making Lab Data Lab results reviewed: Yes I reviewed the patient's lab results. 09/20/23 14:52 09/20/23 14:52 Labs: Lab Results 09/20/23 Range/Units 14:52 WBC 8.3 (4.5-11.0) X10^3/uL RBC 4.43 L (4.5-5.9) X10^6/uL Hgb 14.9 (13.5-17.5) g/dL Hct 42.1 (41-53) % MCV 95.2 (80-100) fL MCH 33.8 (26-34) PG MCHC 35.5 (30-36) % RDW 13.2 (11.6-14.8) % Plt Count 245 (150-400) X10^3/uL Neut % (Auto) 63.0 (50-75) % Lymph % (Auto) 21.2 L (25-40) % Isabela % (Auto) 9.5 (3-14) % Eos % (Auto) 5.0 H (2-4) % Baso % (Auto) 1.3 (0-2) % Neut # (Auto) 5200 (5504-0946) /uL Lymph # (Auto) 1800 (2489-9737) /uL Isabela # (Auto) 800 (0-900) /uL Eos # (Auto) 400 (0-450) /uL Baso # (Auto) 100 (0-100) /uL Sodium 138 (137-145) mmol/L Potassium 3.8 (3.4-5.1) mmol/L Chloride 106 (98-107) mmol/L Carbon Dioxide 26 (22-32) mmol/L BUN 15 (9-20) mg/dL Creatinine 1.13 (0.66-1.25) mg/dL Estimated GFR > 60 (>60) mL/min BUN/Creatinine Ratio 13.3 (6-22) Glucose 86 (70-100) mg/dL Calcium 9.3 (8.4-10.2) mg/dL Total Bilirubin 2.2 H (0.2-1.3) mg/dL AST 30 (17-59) IU/L ALT 31 (<50) IU/L Alkaline Phosphatase 69 (38-126) U/L Total Creatine Kinase 131 (55-170) U/L Troponin I < 0.012 (0.01-0.034) ng/mL Total Protein 7.7 (6.3-8.2) g/dL Albumin 4.1 (3.5-5.0) g/dL Globulin 3.6 (1.7-4.1) g/dL Albumin/Globulin Ratio 1.1 (1.0-2.8) Lipase 389 H (23-300) U/L Imaging Data Chest x-ray: Radiologist's Impression: PROCEDURE: XR CHEST 1V INDICATIONS: Chest pain and SOB TECHNIQUE: One view of the chest was acquired. COMPARISON: [facility], , XR CHEST 2V, 10/24/2019, 19:13. FINDINGS: Surgical changes and devices: None. Lungs and pleura: Lungs are clear. No pleural effusions or pneumothorax. Mediastinum: Mediastinal contours appear normal. Heart size is normal. Bones and chest wall: No suspicious bony lesions. Overlying soft tissues appear unremarkable. IMPRESSION: No acute cardiopulmonary abnormality is seen. ECG Data Attestation: I personally reviewed and interpreted this ECG as follows: Interpretation: Sinus rhythm Ventricular rate is 71 Normal axis Normal QRS Normal QTC No ST T wave changes MDM Narrative Medical decision making narrative: Chest x-ray shows no signs of pneumonia. Has reproducible right-sided chest discomfort. I suspect that this is because of the cough with the underlying muscle strain from moving the door a couple weeks ago. No fevers. No indication for antibiotics. Low suspicion for ACS. Will try to treat his symptoms. He was given return precautions and follow-up instructions. He expressed understanding and agreement. Discharge Plan Departure Patient Disposition: Home Clinical Impression: Cough, Chest wall pain Instructions: Cough Activity Restrictions/Additional Instructions: You can continue to take the [id number] Robitussin. You can also use the Tessalon/benzoate as needed for cough. Contact your primary doctor for a follow-up. Return to the emergency department for new symptoms. Prescriptions: New benzonatate 100 mg capsule 100 mg PO BID-TID PRN (Reason: cough) Qty: 10 0RF Referrals: Ward Carvajal MD [Primary Care Provider] - Stand Alone Forms: Patient Portal/API
[2023-09-20 15:00] VITALS: BP 151/99; PULSE 77; O2SAT 97
[2023-09-20 15:01] LABS: Add Manual Diff / Slide Review NO; Basophils Absolute Auto 100 /uL (0-100); Basophils Percent Auto 1.3 % (0-2); Eosinophils Absolute Auto 400 /uL (0-450); Hematocrit 42.1 % (41-53); Hemoglobin 14.9 g/dL (13.5-17.5); Lymphocytes Absolute Auto 1800 /uL (1100-4500); Lymphocytes Percent Auto 21.2 % (25-40); Mean Corpuscular HGB Conc 35.5 % (30-36); Mean Corpuscular Hemoglobin 33.8 PG (26-34); Mean Corpuscular Volume 95.2 fL (80-100); Monocytes Absolute Auto 800 /uL (0-900); Monocytes Percent Auto 9.5 % (3-14); Neutrophils Absolute Auto 5200 /uL (1500-7000); Platelet Count 245 X10^3/uL (150-400); Red Blood Cell Count 4.43 X10^6/uL (4.5-5.9); Red Cell Distribution Width 13.2 % (11.6-14.8); White Blood Cell Count 8.3 X10^3/uL (4.5-11.0)
[2023-09-20 15:12] LABS: Alanine Aminotransferase 31 IU/L (<50); Albumin 4.1 g/dL (3.5-5.0); Albumin Globulin Ratio 1.1 (1.0-2.8); Alkaline Phosphatase 69 U/L (38-126); Aspartate Aminotransferase 30 IU/L (17-59); BUN Creatinine Ratio 13.3 (6-22); Bilirubin Total 2.2 mg/dL (0.2-1.3); Blood Urea Nitrogen 15 mg/dL (9-20); Calcium 9.3 mg/dL (8.4-10.2); Carbon Dioxide 26 mmol/L (22-32); Chloride 106 mmol/L (98-107); Creatine Kinase 131 U/L (55-170); Estimated Glomerular Filt Rate > 60 mL/min (>60); Globulin 3.6 g/dL (1.7-4.1); Glucose 86 mg/dL (70-100); HEMOLYSIS < 15 (0-50); Lipase 389 U/L (23-300); Potassium 3.8 mmol/L (3.4-5.1); Sodium 138 mmol/L (137-145); Total Protein 7.7 g/dL (6.3-8.2)
[2023-09-20 15:24] LABS: Troponin I < 0.012 ng/mL (0.01-0.034)
[2023-09-20 15:30] VITALS: BP 157/87; PULSE 73; O2SAT 97
== END 2023-09-20 15:53 | disposition home or self-care (01) ==
PROVIDERS: Emergency Provider Emergency Medicine; PCP Family Medicine
DX: R05.9 Cough, unspecified (principal); R07.89 Other chest pain; R06.02 Shortness of breath
CPT/HCPCS: 36415; 71045; 80053; 82550; 83690; 84484; 85025; 93005; 93010; 99283; 99284

== ENCOUNTER → 2024-12-16 10:02 | Outpatient (CLI) | payer OTHER, SELFPAY ==
[2019-10-25 03:07] VITALS: BMI 27.2
--- NOTE | 2024-12-16 10:06 | DI.RAD.S_ITS ---
PROCEDURE: XR KNEE LT 3V INDICATIONS: KNEE PAIN TECHNIQUE: 3 views of the knee were acquired. COMPARISON: [facility], CR, XR KNEE LT 3V, 06/14/2021, 10:11. FINDINGS: Bones: No fractures or dislocations. Mild to moderate bilateral medial femoral tibial compartment joint space narrowing and subchondral sclerosis worse on the right side. No patellar subluxation. No suspicious bony lesions. Soft tissues: No joint effusion. No suspicious soft tissue calcifications. IMPRESSION: No left knee fracture or dislocation. 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 No significant joint effusion. Dictated by: Tylor Kennedy M.D. on 12/16/2024 at 13:58 Approved by: Tylor Kennedy M.D. on 12/16/2024 at 14:02
== END ==
PROVIDERS: PCP Family Medicine; Referring Provider Family Medicine; Visit Provider Family Medicine
DX: M17.12 Unilateral primary osteoarthritis, left knee (principal); M25.562 Pain in left knee
CPT/HCPCS: 73562

== ENCOUNTER 2025-05-30 06:34 | Emergency (ER) | payer OTHER, SELFPAY ==
[2019-10-25 03:07] VITALS: BMI 27.2
[2025-05-30] VITALS (9 sets, daily range): BP systolic 150–200; BP diastolic 77–113; PULSE 56–73; RESP 18; TEMP 36.8; O2SAT 93–99; BMI 30.1
[2025-05-30 06:55] LABS: Add Manual Diff / Slide Review NO; Hematocrit 46.3 % (41-53); Hemoglobin 16.4 g/dL (13.5-17.5); Lymphocytes Absolute Auto 1100 /uL (1100-4500); Mean Corpuscular HGB Conc 35.4 % (30-36); Mean Corpuscular Hemoglobin 32.6 PG (26-34); Mean Corpuscular Volume 92.1 fL (80-100); Platelet Count 248 X10^3/uL (150-400)
--- NOTE | 2025-05-30 07:03 | ED.ABDPAIN ---
HPI - Abdominal Pain General Chief Complaint: Abdominal Pain Stated Complaint: JPouch Blockage/Burning across gut/back pain/vomit Time Seen by Provider: 05/30/25 06:49 Source: patient Mode of arrival: Ambulatory History of Present Illness HPI narrative: Patient is a 55-year-old male history of colectomy with J-pouch 10 years ago at [facility] comes into the ED from home for evaluation of pain to his upper abdomen and mid back started at around 6:00 p.m. yesterday. States that he woke up and the pain was worse therefore decided come into the ED. states that he has history of bowel obstruction the past, states it feels somewhat similar but not as intense. He denies any other symptoms at this time. No trauma no falls not on any blood thinners Related Data Previous Rx's ?Medication ?Instructions ?Recorded benzonatate 100 mg capsule 100 mg PO BID-TID PRN cough #10 09/20/23 caps oxycodone-acetaminophen 5 mg-325 1 tab PO Q8H PRN pain 3 days #9 05/30/25 mg tablet (Percocet) tabs Allergies Allergy/AdvReac Type Severity Reaction Status Date / Time No Known Drug Allergies Allergy Verified 09/20/23 14:29 Review of Systems Review of Systems Narrative: General: Denies fever, chills, weight loss HEENT: Denies headache, eye drainage, eye irritation, head trauma, sore throat, voice change Cardiovascular: Denies any chest pain, palpitations, tachycardia Respiratory: Denies any shortness of breath, cough, wheeze, stridor GI/: Positive abdominal pain, denies nausea, vomiting, diarrhea, bright red blood per rectum, melanotic stools, urinary frequency, urinary retention, dysuria, hematuria MSK: Denies any joint pain, muscle pains, swelling Skin: Denies any rashes, lesions, discoloration Neuro: Denies any headache, lightheadedness, dizziness, fainting, weakness Psych: Denies SI/HI Patient History Medical History Ulcerative colitis Surgical History (Updated 04/28/22 @ 16:16 by Norma Fernandez RN) H/O total colectomy Social History household members: spouse alcohol intake frequency: 0-2 drinks per day Exam Narrative Exam Narrative: General: Cooperative, well-developed, not in acute distress HEENT: Normocephalic, atraumatic, PERRLA, normal sclera, eyelids normal Neck: Active full range of motion, atraumatic Chest: Normal to inspection, negative crepitus, no overlying erythema ecchymosis Respiratory: Normal respiratory effort, not in acute respiratory distress, clear to auscultation bilaterally negative cough, wheeze, tachypnea, rhonchi, rales Cardiology: Regular rate rhythm negative gallop, murmur, rubs GI/: No tenderness to palpation, soft, non rigid, normal to inspection, exam deferred MSK: Full active range of motion in all 4 extremities, atraumatic, no tenderness to palpation of any bony prominences Skin: No rashes or lesions noted Neuro: Alert awake oriented x3, moves all 4 extremities spontaneously, cranial nerves intact, able to answer all questions appropriately follows commands appropriately Psych: Cooperative, negative suicidal or homicidal ideations Initial Vital Signs Initial Vital Signs: Vital Signs Temperature 98.3 F 05/30/25 06:52 Pulse Rate 64 05/30/25 06:52 Respiratory Rate 18 05/30/25 06:52 Blood Pressure 200/113 H 05/30/25 06:52 Pulse Oximetry 99 05/30/25 06:52 Oxygen Delivery Method Room Air 05/30/25 06:52 Course Orders Ordered: ED Orders 05/30/25 06:50 Complete Blood Count AUTO DIFF Stat Comprehensive Metabolic Panel Stat Lactate (Lactic Acid) Stat Lipase Stat MAG [Magnesium] Stat 05/30/25 07:06 CT abdomen pelvis w con Stat 05/30/25 08:13 Urine Culture Stat Urine Microscopic Stat Discontinued Medications Hydromorphone HCl (Hydromorphone Hcl 0.5 Mg/0.5 Ml Syringe) 0.5 mg IV NOW ONE Stop: 05/30/25 07:00 Last Admin: 05/30/25 07:04 Dose: 0.5 mg Documented By: CAROLINA Sodium Chloride (Normal Saline 0.9%) 1,000 mls @ 1,000 mls/hr IV BOLUS ONE Stop: 05/30/25 08:04 Last Admin: 05/30/25 07:24 Dose: 1,000 mls/hr Documented By: OMAR Ondansetron HCl (Ondansetron 4 Mg/2 Ml Inj) 4 mg IV NOW ONE Stop: 05/30/25 07:00 Last Admin: 05/30/25 07:04 Dose: 4 mg Documented By: CAROLINA Ondansetron HCl (Ondansetron 4 Mg/2 Ml Inj) 4 mg IV NOW ONE Stop: 05/30/25 07:33 Last Admin: 05/30/25 07:35 Dose: 4 mg Documented By: OMAR Vital Signs Vital signs: Vital Signs - 8 hr 05/30/25 06:52 Temperature 98.3 F Pulse Rate 64 Respiratory Rate 18 Blood Pressure 200/113 H Pulse Oximetry 99 Oxygen Delivery Method Room Air MDM - Abdominal Pain Lab Data 05/30/25 06:50 05/30/25 06:50 Labs: Lab Results 05/30/25 Range/Units 06:50 WBC 10.3 (4.5-11.0) X10^3/uL RBC 5.03 (4.5-5.9) X10^6/uL Hgb 16.4 (13.5-17.5) g/dL Hct 46.3 (41-53) % MCV 92.1 (80-100) fL MCH 32.6 (26-34) PG MCHC 35.4 (30-36) % RDW 12.7 (11.6-14.8) % Plt Count 248 (150-400) X10^3/uL Neut % (Auto) 81.6 H (50-75) % Lymph % (Auto) 10.4 L (25-40) % [place] % (Auto) 5.6 (3-14) % Eos % (Auto) 1.3 L (2-4) % Baso % (Auto) 1.1 (0-2) % Neut # (Auto) 8400 H (3916-6281) /uL Lymph # (Auto) 1100 (8929-1251) /uL [place] # (Auto) 600 (0-900) /uL Eos # (Auto) 100 (0-450) /uL Baso # (Auto) 100 (0-100) /uL Sodium 139 (137-145) mmol/L Potassium 4.4 (3.4-5.1) mmol/L Chloride 104 (98-107) mmol/L Carbon Dioxide 25 (22-32) mmol/L BUN 20 (9-20) mg/dL Creatinine 1.16 (0.66-1.25) mg/dL Estimated GFR > 60 (>60) mL/min BUN/Creatinine Ratio 17.2 (6-22) Glucose 148 H (70-99) mg/dL Lactate 1.1 (0.7-2.1) mmol/L Calcium 10.1 (8.4-10.2) mg/dL Magnesium 1.8 (1.6-2.3) mg/dL Total Bilirubin 1.9 H (0.2-1.3) mg/dL AST 35 (17-59) IU/L ALT 26 (<50) IU/L Alkaline Phosphatase 90 (38-126) U/L Total Protein 8.0 (6.3-8.2) g/dL Albumin 4.5 (3.5-5.0) g/dL Globulin 3.5 (1.7-4.1) g/dL Albumin/Globulin Ratio 1.3 (1.0-2.8) Lipase 93 (23-300) U/L Point of care testing: Urine Dip Bedside Urine Glucose Negative Bedside Urine Bilirubin - Negative Bedside Urine Ketone - Negative Urine Specific [place] 1.015 Bedside Urine Occult Blood +/- Bedside Urine pH 6.0 Bedside Urine Protein - Negative Bedside Urine Urobilinogen - Negative Bedside Urine Nitrite - Negative Bedside Urine Leukocytes - Negative Esterase MDM Narrative Medical decision making narrative: 55-year-old male with a past medical history of colectomy with a J-pouch presenting for upper abdomen and mid back pain started around 6:00 p.m. yesterday increased in pain this morning. States he has a history of small-bowel obstructions, states it is similar but not exactly the same. He does describe 1 episode of nonbilious nonbloody emesis. States that he has been able to move his bowels as well as been able to pass gas. Patient with a nontender non peritoneal abdomen normal exam. Patient had lab work imaging urinalysis performed here in the emergency department. Patient's urinalysis not consistent with acute urinary tract infection., patient without any leukocytosis, patient's Chem panel without any acute abnormalities, creatinine normal, patient does have chronically elevated bilirubin on 09/20/2023 was 2.2, today 1.9. AST LFT alk-phos normal. Patient's CT scan no signs of any acute intra-abdominal pathology, does show cholelithiasis without signs of cholecystitis. Patient is not having any actual palpable abdominal pain, incidental findings were also noted and was informed to the patient, he was instructed to follow up with GI and his primary care doctor. He was given strict return precautions he verbalized understanding and agrees with the being discharged home with outpatient follow up Discharge Plan Departure Patient Disposition: Home Clinical Impression: Abdominal pain Instructions: DI for Abdominal Pain-Adult Activity Restrictions/Additional Instructions: Please follow up with primary care and GI in outpatient setting Please read the discharge instructions sheet carefully and bring all papers to all doctor follow-up visits, as it may contain information that your doctor may want to see. Disease processes change and evolve, if your symptoms worsen or if you develop any new symptoms that are concerning to you please return for evaluation. Your evaluation today does not show any evidence of any life-threatening/serious illnesses requiring admission to the hospital or surgery. Please follow-up with your doctor for re-evaluation in approximately 1 day. Seek immediate medical attention for any worrisome symptoms. *If you do not have a primary care provider please contact the [facility] Resource line at [phone]. They will ask some questions about your medical history and help get you set up with a doctor in the community. Prescriptions: New oxycodone-acetaminophen [Percocet] 5-325 mg tablet 1 tab PO Q8H PRN (Reason: pain) 3 Days Qty: 9 0RF No Action benzonatate 100 mg capsule 100 mg PO BID-TID PRN (Reason: cough) Qty: 10 0RF Referrals: Ward Carvajal MD [Primary Care Provider, Family Practice] Stand Alone Forms: Patient Portal/API
[2025-05-30] MEDS: ONDANSETRON 4 MG/2 ML INJ IV ×2 (07:04→07:35)
--- NOTE | 2025-05-30 07:06 | DI.CT.S_ITS ---
PROCEDURE: CT ABDOMEN PELVIS W CON INDICATIONS: Abdominal pain history of colectomy with J-pouch TECHNIQUE: After the administration of intravenous contrast, axial sections acquired from the lung bases to the pubic symphysis. Coronal and sagittal reformats were performed. For radiation dose reduction, the following was used: automated exposure control, adjustment of mA and/or kV according to patient size. COMPARISON: [facility], CT, CT ABDOMEN PELVIS W CON, 10/24/2019, 23:12. FINDINGS: Image quality: Diagnostic. Lower Chest: No significant findings. ABDOMEN: Liver: Benign hepatic cysts. Additional subcentimeter hypoattenuating lesions, too small to characterize by CT. Gallbladder: Cholelithiasis without wall thickening or adjacent fat stranding to suggest acute cholecystitis. Biliary ducts: New, very mild intrahepatic biliary dilation . Pancreas: No ductal dilation. Spleen: Size is within normal limits. Adrenal Glands: No adrenal nodules. Kidneys and Ureters: No hydronephrosis. No solid mass. No complex renal cystic lesion which requires follow up. Right pelvic kidney. Stomach and Bowel: Normal colonic caliber, without significant wall thickening. Total colectomy with J-pouch . Peritoneum: No abnormal intraperitoneal fluid. No free air. Ventral Wall: Wide-mouth periumbilical hernia containing fat. The neck measures 2 centimeters and the sac measures 7 x 3.4 centimeters. Abdominal Nodes: No retroperitoneal or mesenteric adenopathy by size criteria. Vessels: Aorta and inferior vena cava are normal in size. PELVIS: Pelvic Organs: Unremarkable. Bladder: No bladder wall thickening, accounting for underdistention. Pelvic Nodes: No enlarged lymph nodes. Miscellaneous: Small left direct inguinal hernia containing fat. Bones: No aggressive osseous abnormality. Very mild bilateral sacroiliitis. IMPRESSION: No acute abnormality. Colectomy with J-pouch formation. No evidence of inflammation. Cholelithiasis without wall thickening or adjacent fat stranding to suggest acute cholecystitis. Very mild intrahepatic biliary dilation, which may indicate early PSC. Recommend GI referral (if not already followed) and nonemergent MRCP. Dictated by: Costa Anglin M.D. on 05/30/2025 at 8:13 Approved by: Costa Anglin M.D. on 05/30/2025 at 8:17
[2025-05-30 07:18] LABS: Alanine Aminotransferase 26 IU/L (<50); Albumin 4.5 g/dL (3.5-5.0); Albumin Globulin Ratio 1.3 (1.0-2.8); Alkaline Phosphatase 90 U/L (38-126); Blood Urea Nitrogen 20 mg/dL (9-20); Calcium 10.1 mg/dL (8.4-10.2); Carbon Dioxide 25 mmol/L (22-32); Chloride 104 mmol/L (98-107); Estimated Glomerular Filt Rate > 60 mL/min (>60); Globulin 3.5 g/dL (1.7-4.1); Glucose 148 mg/dL (70-99); HEMOLYSIS 34 (0-50); Lipase 93 U/L (23-300); Potassium 4.4 mmol/L (3.4-5.1); Sodium 139 mmol/L (137-145); Total Protein 8.0 g/dL (6.3-8.2)
[2025-05-30 07:19] LABS: Lactate (Lactic Acid) 1.1 mmol/L (0.7-2.1)
[2025-05-30] MEDS: SODIUM CHLORIDE 0.9% 1,000 ML 1000 ML IV (07:24)
[2025-05-30 07:37] LABS: Magnesium 1.8 mg/dL (1.6-2.3)
--- NOTE | 2025-05-30 07:51 | PC.NURSE ---
Patient expressed concern prior to CT regarding contrast, states he vomits with administration. Patient medicated with Zofran IV prior to CT, no vomiting this time. Patient tolerated well
[2025-05-30 09:06] LABS: Culture Indicated Urine Cult Not Indicated
== END 2025-05-30 09:25 | disposition home or self-care (01) ==
PROVIDERS: Emergency Medicine; Emergency Provider Student in an Organized Health Care Education/Training Program; PCP Family Medicine
DX: R10.10 Upper abdominal pain, unspecified (principal); M54.6 Pain in thoracic spine
CPT/HCPCS: 36415; 74177; 80053; 81003; 81015; 83605; 83690; 83735; 85025; 87086; 96361; 96374; 96375; 96376; 99284; J1171; J2405; Q9967